=== PATIENT | female | born 1985 | race Caucasian/White ===

== ENCOUNTER 2020-09-13 06:39 | Inpatient (IN) | payer BC, MEDICAID, SELFPAY ==
[2020-09-13] VITALS (19 sets, daily range): BP systolic 76–112; BP diastolic 31–86; PULSE 65–93; RESP 16–27; TEMP 36.2–37.2; O2SAT 92–97; BMI 29.9
[2020-09-13] MEDS: lactated ringers 1,000 ML 125 ML IV ×2 (07:57→11:24)
[2020-09-13] MEDS: oxytocin 30 UNIT/500 ML BAG 600 UNIT IV (07:57)
[2020-09-13] MEDS: fentaNYL 50 mcg/mL INJ 2mL 25 MCG IVP (08:20)
--- NOTE | 2020-09-13 08:30 | PM.OBGYHP ---
Providers/Chief Complaint Primary Care Provider: Sebas Trevizo Chief Complaint: out of hospital delivery HPI GARDEN IMPLEMENT MECHANIC History of Present Illness HISTORY AND PHYSICAL: I had my baby at home Chief Complaint: I had my baby at home History of present illness: Ms. Marks is a 35-year old 7 para 0-5-2-3 at roughly 23 weeks gestation with an estimated due date of 01/26/2021 who presented to labor and delivery with reports of delivering a fetus at home that was without signs of life when EMS arrived. She states that she was doing okay and was seen by her GARDEN IMPLEMENT MECHANIC Dr. Momin in [facility] on 09/12/2020. She was told that her cervix was short and that it was unlikely that she would carry full-term. She was taking progesterone supplements for this. She states that she got up in the morning to empty her bladder and as she was bearing down to empty her bladder she delivered her . She states the baby had no signs of life upon delivery and the placenta followed shortly after. She reports that EMS came about 15 to 20 minutes after delivery and there were no signs of life although they attempted CPR. She was brought to the hospital by 6:30 AM about an hour and a half after delivery. She does report some cramping pain. She is upset at the loss of her . course: Reports an uncomplicated course other than having a shortened cervix for which she was taking progesterone. States that her diabetes was well controlled although she does not know details about this and states that all she needed was the Metformin. LABS: None available right now Obstetric History: SAB x2 5 vaginal deliveries including this 1. The longest that she has carried a to is 32 weeks Gynecological history: Menstrual :-Menarche at age 15 with regular 30-day cycles lasting for 3 days Sexual:-Deferred Pap smear:-Reports history of normal Pap smears. Does not know when her last Pap smear was Sexually transmitted infections:-Denies Contraception:-Is use the pill the patch and the Depo-Provera for contraception in the past. Past medical history: -----Type 2 diabetes diagnosed at the age of 32 and she has been on Metformin 500 mg twice daily since then. This is managed by her primary care provider. She does not remember her last hemoglobin A1c -----Bipolar disorder since her teenage years and is on fluoxetine managed by her primary care provider. She does not have a psychiatrist or therapist. ------ denies history of asthma, seizures, DVT/PE, stroke Past surgical history: ----->Open heart surgery in 2017 at [facility] in [place] for a leaky heart valve and blood clots in her heart along with a hole in her heart ----> Right ear reconstructive surgery in her 20s Allergies: -Aspirin-head rings--she has taken ibuprofen without any problems. -Percocet-leg swelling---has taken [place] without any problems Current Medications: Metformin, melatonin, Prozac, progesterone, Social History: Alcohol use:-1-2 times a year prior to the . None since finding out she was Tobacco use:-Started smoking at the age of 15 and smoked with the most 2 packs of cigarettes a day. Has been cutting down and now currently smokes about half a pack of cigarettes a day during the . Drug use:-Denies current or past drug use Family History: Mother has diabetes Physical exam: General: well developed, well nourished Neuro/Psych: alert, oriented to time, place and person. Heart: S1-S2 heard, regular rate and rhythm. Lungs: Clear to auscultation bilaterally. Abdomen: 4 fingerbreadths above the pubic bone Legs: No pedal edema no calf tenderness. Negative Homans sign Back: No CVA tenderness Skin: Normal over abdomen Lymph nodes: No palpable inguinal lymph nodes Pelvic exam: External genitalia---cervix appears intact and there are no sulcal tears and perineal tears. Cervix appears open admitting 2 fingers and there is still blood clots and tissue on the inside. Unable to take it out completely given patient's discomfort and difficulty getting through the cervix given early gestation and long interval of time from delivery to exam. Assessment and Plan: 35-year-old 7 para 0-5-2-3 status post delivery of a nonviable on 09/13/2020 -Likely retained bits of placenta--patient not tolerating exam and requires D&C for retained bits of placenta. Discussed procedure of D&C with patient including risk of bleeding, infection, anesthesia risk, damage to surrounding organs. Discussed risk of uterine perforation. -All patient's questions about the procedure were answered to her satisfaction and consents were obtained -CBC type and screen stat -Drug screen urine culture now -OR and anesthesia notified--2 OR for D&C Present Details : 7 Para: 5 Review of Systems Const: Denies: fever(s), chills, change in appetite, change in weight, fatigue, malaise or change in sleep pattern Resp: Denies: dyspnea, productive cough, wheezing or chest congestion GI: Denies: abdominal pain, nausea, vomiting, heartburn, diarrhea, constipation, change in bowel habits or hematochezia : Denies: flank pain, dysuria, urinary frequency, urinary urgency, urinary incontinence, genital lesions, vaginal odor, vaginal bleeding, vaginal discharge, change in menstrual flow or dyspareunia Psych: Denies: anxiety, depression, mood swings or change in appetite Vitals/I&O/Wt Last Vital Signs Temp 98.1 F 09/13/20 06:35 Pulse 93 09/13/20 06:35 Resp 19 H 09/13/20 06:35 BP 106/53 09/13/20 06:35 Pulse Ox 97 09/13/20 06:35 Data : 09/13/20 09:05 09/13/20 09:05 Attestations Medical Necessity Statement*: Patient needs to stay to recover from surgery and delivery Coding Level of Care Code Acute Distribution Center Manager for Ryan Cruz
--- NOTE | 2020-09-13 08:45 | PC.NURSE ---
Rounding Patient taken to PACU via labor bed.
[2020-09-13] MEDS: miSOPROStol 200 mcg Tablet 800 MCG PR (09:15)
[2020-09-13 09:16] LABS: Amphetamines Screen Urine Negative (Negative); Barbiturates Screen Urine Negative (Negative); Benzodiazepines Screen Urine Negative (Negative); Bilirubin Urine Neg (Negative); Blood Urine 2+ (Negative); Cocaine Screen Urine Negative (Negative); Glucose Urine UA Norm (Normal); Ketones Urine Negative (Negative); Leukocyte Esterase Urine Negative (Negative); Nitrate Urine Negative (Negative); Opiate Screen Urine Negative (Negative); PCP Screen Urine Negative (Negative); Protein Urine Neg (Negative); Specific Gravity, Urine 1.015 (1.005-1.030); THC Screen Urine Negative (Negative); Urine Appearance Clear (CLEAR); Urine Color Yellow (Yellow); Urobilinogen Urine Norm (Negative); pH Urine 6.5 (5-7)
[2020-09-13] MEDS: silver nitrate applicator 1 EACH TOPICAL (09:16)
[2020-09-13 09:17] LABS: Bacteria Urine TRACE /hpf; Mucus Urine TRACE /hpf; Squamous Epithelial Cell Urine 0-4 /hpf (0-5)
--- NOTE | 2020-09-13 09:19 | PM.OP ---
Operative Report Date of procedure: September 13, 2020 OPERATIVE REPORT Date of surgery: 09/13/2020 Date of dictation: 09/13/2020 Preoperative diagnosis: Retained placenta after previable delivery at 23 weeks Postoperative diagnosis/findings: Same, 14-week size anteverted uterus, open cervix with products noted. Procedure done: Dilation and curettage Specimens removed/disposition of specimens: Placental tissue Surgeon: Dr. Beto Chapin biology research assistant: Lionel Anesthesia: Sedation Estimated blood loss: 150 ml Intravenous fluids: 300 mL of LR Urine output: 50 mL of urine via straight catheter prior to start of procedure Medications: As per anesthesia records, 800 mcg of Cytotec per rectum Complications: None, patient was taken to the recovery room in a stable condition PROCEDURE: After consents were signed , the patient was taken to the operating room where she was placed under sedation anesthesia without any difficulty. She was placed in dorsal lithotomy position and exam under anesthesia showed a She was then prepped and draped in the usual sterile fashion. Weighted speculum and lateral wall retractors were used to visualize the cervix and the anterior lip of cervix was grasped with a tenaculum. The cervix was easily dilated. Once this was done sharp curette was placed into the uterus without difficulty and advanced to the fundus. Care was taken to do gentle curettage towards the cervix to decrease the risk of perforation. This was done gently on all 4 david of the uterus and gritty sensation was noted. Copious amounts of placental tissue membrane and clots were removed and sent to pathology labeled as placental tissue. As there was still active bleeding from the cervix she was given Pitocin IV and 800 mcg of Cytotec per rectum. Bimanual massage was continued and the uterus was noted to be firm and was 12 weeks in size. Bleeding was noted to be minimal. Tenaculum was removed from the cervix and hemostasis was achieved at tenaculum site with silver nitrate. All instruments were removed from the vagina. Anesthesia was reversed without difficulty and taken to the recovery room in a stable condition. This documentation was created by [employer] alteration tailor apprentice software (known for inherent alteration tailor apprentice error). Every effort was made to assure accuracy of alteration tailor apprentice. Any obvious errors or omissions should be clarified with the author of the document. Associated Problem List Diagnoses (1) labor with delivery: (2) Retained placenta after delivery without hemorrhage but with other complication: [facility] GANG PUSHER Medical History (Updated 09/13/20 @ 15:07 by Beto Handy MD) Bipolar disorder Diagnosed as a teenager and has been on different medications in the past. Has been on Prozac most recently prior to the and during the again managed by her primary care provider. She does not have a psychiatrist or therapist. Currently denies suicidal/homicidal ideation Diabetes mellitus Diagnosed in 2018 and reports that he was controlled on Metformin prior to this and the dose has not changed during the . -Reports that is managed by her primary care provider No pertinent past medical history Denies diabetes, asthma, seizures, DVT/PE PMD: Dr. Marsh Surgical History (Updated 09/13/20 @ 15:07 by Beto Handy MD) History of ear surgery 20s--reports having reconstructive surgery on her right ear for an abnormality. Does not know details S/P dilation and curettage 09/13/2020--dilation and curettage performed by Dr. Chaipn at [facility] for retained placenta after previable delivery at 23 weeks. -----Pathology pending Status post cardiac surgery 2018--reports having open heart surgery for a leaky heart valve/blood clot--reports it was triple bypass surgery. Does not really know any details. ------> performed at [facility] in [place]. History History History 7 Term 0 Miscarriages/Ectopic 2 5 Living Children 3 Other History: SAB X 2 X 5----> 2 including this 1 previable baby did not survive, other 3 were the longest going up to 32 weeks. Patient reports uncomplicated vaginal deliveries.
[2020-09-13 09:20] LABS: Add Urine Culture? No
[2020-09-13 09:25] LABS: Glucose Point of Care 133 mg/dL (70-110)
--- NOTE | 2020-09-13 09:32 | SUR.PHASEI ---
0956 patient to pacu at this time. rr even and unlabored. pt denies pain.
[2020-09-13 09:36] LABS: Basophils % 0.4 %; Eosinophils # 0.1 10^3/uL (0.0-0.8); Eosinophils % 0.4 %; Hematocrit 32.2 % (37.0-47.0); Hemoglobin 10.6 g/dL (11.5-15.3); Lymphocytes # 1.4 10^3/uL (0.8-4.8); Lymphocytes % 12.4 %; Mean Corpuscular HGB Conc 32.9 g/dL (30.0-36.0); Mean Corpuscular Volume 94.2 fL (81-99); Mean Platelet Volume 11.1 fL (7.4-10.4); Monocytes # 0.7 10^3/uL (0.2-0.9); Neutrophils # 9.12 10^3/uL (1.8-7.7); Neutrophils % 79.9 %; Nucleated Red Blood Cells % 0 %; Platelet Count 187 10^3/cmm (130-400); Red Blood Count 3.42 10^6/uL (4.1-5.3); Red Cell Distribution Width 14.5 % (12.1-15.1); White Blood Count 11.4 10^3/uL (4.0-10.0)
--- NOTE | 2020-09-13 09:37 | P.ANESASSM_ITS ---
Pre-Anesthetic Assessment Pre-Anesthetic Assessment: Height/Weight: Temp Pulse Resp BP Pulse Ox 97.2 F L 72 27 H 88/43 92 09/13/20 09:25 09/13/20 09:30 09/13/20 09:30 09/13/20 09:30 09/13/20 09:30 Proposed Procedure: Operation Date: 09/13/20 09:40 Proposed Procedures p Dilation And Curettage (D&C)(Not Applicable) - Beto Handy MD Was Beta [place] taken within 24 hours: N/A Was Clonidine taken within 24 hours: N/A Social: Social History: Tobacco Exam: Pre-Anes Outpt Exam: alert, oriented x 3 and regular rate & rhythm Airway: Submandibular: WNL Cervical ROM: WNL MP: 2 Dentition: False CV/HEM: CV/HEM: Anemia Comments: H/o heart surgery, valve repair? Neuropsych: Neuropsych: Anxiety Anesthetic Plan: ASA status: 3E Anesthesia: Choice Other: demise Risk of > 500 ml blood loss (7ml/kg in children): No Meds/Allergies Current Medications: Current Medications Generic Name Dose Route Start Last Admin Trade Name Freq PRN Reason Stop Dose Admin Fentanyl 25 mcg 09/13/20 07:33 09/13/20 08:49 Fentanyl 50 Mcg/ Ml Inj 2ml IVP 25 mcg PRN PRN Administration SEVERE PAIN Lactated Ringer's 1,000 mls @ 125 m ls/hr 09/13/20 07:45 09/13/20 07:57 Lactated Ringers IV 125 mls/hr .Q8H YARON Administration Oxytocin 30 unit in 500 ml s @ 600 mls/hr 09/13/20 07:31 09/13/20 07:57 Pitocin IV 600 mls/hr .Q50M PRN Administration bleeding Protocol PFSH Anesthesia Female Reproductive History: : 7 Data Anesthesia CBC & Chem 7: 09/13/20 09:05 09/13/20 09:05 Other Labs: Laboratory Results - last 48 hr 09/13/20 09/13/20 09/13/20 07:53 08:20 08:20 WBC RBC Hgb Hct MCV MCH MCHC RDW Plt Count MPV Neut % (Auto) Lymph % (Auto) [place] % (Auto) Eos % (Auto) Baso % (Auto) Neut # (Auto) Lymph # (Auto) [place] # (Auto) Eos # (Auto) Baso # (Auto) Nucleated RBC % (auto) Nucleated RBCs # POC Glucose 133 H Urine Color Yellow Urine Appearance Clear Urine pH 6.5 Ur Specific [place] 1.015 Urine Protein Neg Urine Glucose (UA) Norm Urine Ketones Negative Urine Blood 2+ H Urine Nitrate Negative Urine Bilirubin Neg Urine Urobilinogen Norm Ur Leukocyte Esterase Negative Urine RBC 5-10 H Urine WBC None Ur Squamous Epith Cells 0-4 H Amorphous Sediment Not Reportable Urine Bacteria Trace Urine Mucus Trace Urine Opiates Screen Negative Ur Barbiturates Screen Negative Ur Phencyclidine Scrn Negative Ur Amphetamines Screen Negative U Benzodiazepines Scrn Negative Urine Cocaine Screen Negative U Marijuana (THC) Screen Negative 09/13/20 09:05 WBC 11.4 H RBC 3.42 L Hgb 10.6 L Hct 32.2 L MCV 94.2 MCH 31.0 MCHC 32.9 RDW 14.5 Plt Count 187 MPV 11.1 H Neut % (Auto) 79.9 Lymph % (Auto) 12.4 [place] % (Auto) 6.0 Eos % (Auto) 0.4 Baso % (Auto) 0.4 Neut # (Auto) 9.12 H Lymph # (Auto) 1.4 [place] # (Auto) 0.7 Eos # (Auto) 0.1 Baso # (Auto) 0.0 Nucleated RBC % (auto) 0 Nucleated RBCs # 0.0 POC Glucose Urine Color Urine Appearance Urine pH Ur Specific [place] Urine Protein Urine Glucose (UA) Urine Ketones Urine Blood Urine Nitrate Urine Bilirubin Urine Urobilinogen Ur Leukocyte Esterase Urine RBC Urine WBC Ur Squamous Epith Cells Amorphous Sediment Urine Bacteria Urine Mucus Urine Opiates Screen Ur Barbiturates Screen Ur Phencyclidine Scrn Ur Amphetamines Screen U Benzodiazepines Scrn Urine Cocaine Screen U Marijuana (THC) Screen Cardiac Studies: No Data to Display
[2020-09-13 09:51] LABS: Chloride 102 mmol/L (98-107); Potassium 3.7 mmol/L (3.5-5.1)
[2020-09-13] MEDS: lactated ringers 1,000 ML 999 ML IV (09:53)
--- NOTE | 2020-09-13 10:09 | SUR.PHASEI ---
0952 PATIENT TO OB AT THIS TIME. NO DISTRESS. A/OX3. RR EVEN AND UNLABORED.
[2020-09-13 10:11] LABS: Anion Gap 16.6 (5-19); Blood Urea Nitrogen 5 mg/dL (6-20); Calcium 8.1 mg/dL (8.5-10.5); Carbon Dioxide 21 mmol/L (22-29); Glomerular Filtration Rate 183.8 mL/min (90-130); Glucose 118 mg/dL (65-115); Osmolality Calculated 278 mOsm/kg (285-295); Sodium 135 mmol/L (136-145)
[2020-09-13 12:00] LABS: Glucose Point of Care 122 mg/dL (70-110)
[2020-09-13] MEDS: guaiFENesin 100 mg/5 mL UDC 10 mL 200 MG PO ×2 (12:30→20:37)
[2020-09-13] MEDS: nicotine 7 mg Patch 1 PATCH TRANSDERMA (13:13)
--- NOTE | 2020-09-13 14:55 | ANE.PACU2 ---
Inpatient post-anesthesia follow up: Airway intact: Yes Vital signs: Temperature 97.4 F Pulse Rate 67 Respiratory Rate 17 Blood Pressure 94/62 Pulse Oximetry 94 Oxygen Delivery Me thod Room Air Oxygen Flow Rate 6 Fraction of Inspir ed Oxygen Hydration adequate: Yes Nausea and vomiting: No Pain level: 2 Mental status: Baseline
[2020-09-13] MEDS: ibuprofen 800 mg tablet PO ×2 (16:00→21:30)
--- NOTE | 2020-09-13 18:18 | PC.NURSE ---
OB Pad Changes 1015-OB pad and chux pad changed when patient returned from D&C, estimated to be 1 OB pad completely saturated. 1130-OB pad changed, less than 1/2 pad saturated, scant bleeding. 1400-OB pad changed, less than 1/2 pad saturated, scant bleeding. 1610-OB pad changed, less than 1/2 pad saturated, scant bleeding.
[2020-09-13 20:48] LABS: Glucose Point of Care 150 mg/dL (70-110)
[2020-09-13 22:03] LABS: Hematocrit 29.3 % (37.0-47.0); Hemoglobin 9.7 g/dL (11.5-15.3); Mean Corpuscular HGB Conc 33.1 g/dL (30.0-36.0); Mean Corpuscular Hemoglobin 30.8 pg (28.0-34.0); Mean Platelet Volume 10.8 fL (7.4-10.4); Platelet Count 185 10^3/cmm (130-400); Red Blood Count 3.15 10^6/uL (4.1-5.3); Red Cell Distribution Width 14.5 % (12.1-15.1); White Blood Count 11.3 10^3/uL (4.0-10.0)
[2020-09-14] MEDS: zolpidem 5 mg Tablet PO (01:45)
[2020-09-14 05:32] LABS: Glucose Point of Care 131 mg/dL (70-110)
--- NOTE | 2020-09-14 06:24 | P.DS_ITS ---
Discharge Providers GAGE DESIGNER Date of Discharge: 09/23/20 Attending Provider at Discharge: Beto Handy MD Primary Care Provider: Ms. Marks is a 35-year old 7 para 0-5-2-3 at roughly 23 weeks gestation with an estimated due date of 01/26/2021 who presented to labor and delivery on 09/13/2020 with reports of delivering a fetus at home that was without signs of life when EMS arrived. She states that she was doing okay and was seen by her GAGE DESIGNER Dr. Momin in [facility] on 09/12/2020. She was told that her cervix was short and that it was unlikely that she would carry full-term. She was taking progesterone supplements for this. She states that she got up in the morning to empty her bladder and as she was bearing down to empty her bladder she delivered her . She states the baby had no signs of life upon delivery and the placenta followed shortly after. She reports that EMS came about 15 to 20 minutes after delivery and there were no signs of life although they attempted CPR. She was brought to the hospital by 6:30 AM about an hour and a half after delivery. She does report some cramping pain. She is upset at the loss of her . ------> when I evaluated her placenta initially looked intact however cervix was normal closed and bits of placental tissue were extracted from the lower uterine segment. However given the length of time between delivery and my examination I was unable to access the whole uterine cavity and patient was very uncomfortable as a result decision was made to do a D&C to remove the retained parts of the placenta. Patient was consented on 09/13/2020 underwent a dilation and curettage for removal of placental tissue which was uncomplicated. HOSPITAL COURSE: She did well on day 0 and was ambulating well, tolerating regular diet, voiding freely, passing flatus. She was understandably upset but was coping well since this has happened to her before. On postoperative day #1 she continued to do well with stable vital signs and stable hemoglobin of 9.7 from an admission value of 10.6. Vital signs were stable. She was discharged home in a stable condition with recommendation to maintain pelvic rest. She is interested in sterilization and she plans to talk to her primary OB about this. She will follow-up with me in 2 weeks for a postoperative visit and then follow- up with her primary OB for 6-week visit EXAM AT DISCHARGE: Gen.: No acute distress Heart: S1-S2 heard, regular rate and rhythm Lungs: Clear to auscultation bilaterally Abdomen: Soft, fundus firm below umbilicus, Legs: No calf tenderness, trace bilateral pitting pedal edema. CONDITION AT DISCHARGE: Stable This documentation was created by [employer] jack spinner software (known for inherent jack spinner error). Every effort was made to assure accuracy of jack spinner. Any obvious errors or omissions should be clarified with the author of the document. Diagnoses at Discharge Discharge Diagnosis (1) labor with delivery: Status: Resolved (2) Retained placenta after delivery without hemorrhage but with other complication: Status: Resolved Reason for Visit Reason for Visit: out of hospital delivery Physical Exam Urinary Catheter Management^: Straight: Cath Placed During This Visit: no Discharge Data Data Completed and Pending: Pending at discharge Category Date Time Status COVID [Coronaviru s Test Green Count y] Routine Lab 09/13/20 18:50 Received Chlamydia Trachom atis SHAHNAZ Routine Lab 09/13/20 08:20 Received Complete Crossmat ch Routine Lab 09/13/20 10:49 Results Neisseria Gonorrh oeae SHAHNAZ Routine Lab 09/13/20 08:20 Received Retype for Patiet s ABO/Rh Routine Lab 09/13/20 09:59 Ordered Rho D Immune Glob ulin Routine Lab 09/13/20 10:49 Results Pathology: Surgic al [PTH] Routine Pth 09/13/20 09:28 Received Labs from last 24 hours 09/14/20 09/13/20 09/13/20 05:27 21:34 20:39 WBC 11.3 H RBC 3.15 L Hgb 9.7 L Hct 29.3 L MCV 93.0 MCH 30.8 MCHC 33.1 RDW 14.5 Plt Count 185 MPV 10.8 H Neut % (Auto) Lymph % (Auto) [place] % (Auto) Eos % (Auto) Baso % (Auto) Neut # (Auto) Lymph # (Auto) [place] # (Auto) Eos # (Auto) Baso # (Auto) Nucleated RBC % (a uto) Nucleated RBCs # Sodium Potassium Chloride Carbon Dioxide Anion Gap BUN Creatinine GFR Calculation Glucose POC Glucose 131 H 150 H Calculated Osmolal ity Calcium Urine Color Urine Appearance Urine pH Ur Specific Gravit y Urine Protein Urine Glucose (UA) Urine Ketones Urine Blood Urine Nitrate Urine Bilirubin Urine Urobilinogen Ur Leukocyte Brea ase Urine RBC Urine WBC Ur Squamous Epith Cells Amorphous Sediment Urine Bacteria Urine Mucus Urine Opiates Scre en Ur Barbiturates Sc reen Ur Phencyclidine S crn Ur Amphetamines Sc reen U Benzodiazepines Scrn Urine Cocaine Scre en U Marijuana (THC) Screen Nasal/Oral COVID-1 9 PCR Blood Type Rho(D) Type Antibody Screen 09/13/20 09/13/20 09/13/20 18:50 11:27 09:05 WBC RBC Hgb Hct MCV MCH MCHC RDW Plt Count MPV Neut % (Auto) Lymph % (Auto) [place] % (Auto) Eos % (Auto) Baso % (Auto) Neut # (Auto) Lymph # (Auto) [place] # (Auto) Eos # (Auto) Baso # (Auto) Nucleated RBC % (a uto) Nucleated RBCs # Sodium 135 L Potassium 3.7 Chloride 102 Carbon Dioxide 21 L Anion Gap 16.6 BUN 5 L Creatinine 0.4 L GFR Calculation 183.8 H Glucose 118 H POC Glucose 122 H Calculated Osmolal ity 278 L Calcium 8.1 L Urine Color Urine Appearance Urine pH Ur Specific Grav[place] y Urine Protein Urine Glucose (UA) Urine Ketones Urine Blood Urine Nitrate Urine Bilirubin Urine Urobilinogen Ur Leukocyte Brea ase Urine RBC Urine WBC Ur Squamous Epith Cells Amorphous Sediment Urine Bacteria Urine Mucus Urine Opiates Scre en Ur Barbiturates Sc reen Ur Phencyclidine S crn Ur Amphetamines Sc reen U Benzodiazepines Scrn Urine Cocaine Scre en U Marijuana (THC) Screen Nasal/Oral COVID-1 9 PCR Pending Blood Type Rho(D) Type Antibody Screen 09/13/20 09/13/20 09/13/20 09:05 09:05 08:20 WBC 11.4 H RBC 3.42 L Hgb 10.6 L Hct 32.2 L MCV 94.2 MCH 31.0 MCHC 32.9 RDW 14.5 Plt Count 187 MPV 11.1 H Neut % (Auto) 79.9 Lymph % (Auto) 12.4 [place] % (Auto) 6.0 Eos % (Auto) 0.4 Baso % (Auto) 0.4 Neut # (Auto) 9.12 H Lymph # (Auto) 1.4 [place] # (Auto) 0.7 Eos # (Auto) 0.1 Baso # (Auto) 0.0 Nucleated RBC % (a uto) 0 Nucleated RBCs # 0.0 Sodium Potassium Chloride Carbon Dioxide Anion Gap BUN Creatinine GFR Calculation Glucose POC Glucose Calculated Osmolal ity Calcium Urine Color Urine Appearance Urine pH Ur Specific Gravit y Urine Protein Urine Glucose (UA) Urine Ketones Urine Blood Urine Nitrate Urine Bilirubin Urine Urobilinogen Ur Leukocyte Brea ase Urine RBC Urine WBC Ur Squamous Epith Cells Amorphous Sediment Urine Bacteria Urine Mucus Urine Opiates Scre en Negative Ur Barbiturates Sc reen Negative Ur Phencyclidine S crn Negative Ur Amphetamines Sc reen Negative U Benzodiazepines Scrn Negative Urine Cocaine Scre en Negative U Marijuana (THC) Screen Negative Nasal/Oral COVID-1 9 PCR Blood Type A Negative Rho(D) Type Negative / 0 Antibody Screen Negative 09/13/20 09/13/20 08:20 07:53 WBC RBC Hgb Hct MCV MCH MCHC RDW Plt Count MPV Neut % (Auto) Lymph % (Auto) [place] % (Auto) Eos % (Auto) Baso % (Auto) Neut # (Auto) Lymph # (Auto) [place] # (Auto) Eos # (Auto) Baso # (Auto) Nucleated RBC % (a uto) Nucleated RBCs # Sodium Potassium Chloride Carbon Dioxide Anion Gap BUN Creatinine GFR Calculation Glucose POC Glucose 133 H Calculated Osmolal ity Calcium Urine Color Yellow Urine Appearance Clear Urine pH 6.5 Ur Specific [place] 1.015 Urine Protein Neg Urine Glucose (UA) Norm Urine Ketones Negative Urine Blood 2+ H Urine Nitrate Negative Urine Bilirubin Neg Urine Urobilinogen Norm Ur Leukocyte Brea ase Negative Urine RBC 5-10 H Urine WBC None Ur Squamous Epith Cells 0-4 H Amorphous Sediment Not Reportable Urine Bacteria Trace Urine Mucus Trace Urine Opiates Scre en Ur Barbiturates Sc reen Ur Phencyclidine S crn Ur Amphetamines Sc reen U Benzodiazepines Scrn Urine Cocaine Scre en U Marijuana (THC) Screen Nasal/Oral COVID-1 9 PCR Blood Type Rho(D) Type Antibody Screen Vitals: Last Vital Signs Temp 98.1 F 09/13/20 17:45 Pulse 71 09/13/20 21:36 Resp 17 09/13/20 21:36 BP 98/86 09/13/20 21:36 Pulse Ox 94 09/13/20 21:36 Discharge Plan Discharge Patient Disposition: Home Prescriptions: New ibuprofen 800 mg tablet 800 mg PO Q8H Qty: 30 RF: 0 Continued fluoxetine 40 mg PO DAILY RF: 0 melatonin 10 mg PO BEDTIME RF: 0 metformin 500 mg PO BID RF: 0 Discontinued progesterone 200 mg PO DAILY RF: 0 Discharge Orders: Discharge Order (Routine); Ordered 09/14/20 Ordered By: Beto Handy Referrals: Sebas Trevizo [Primary Care Provider] - (f/u in 8 weeks) Beto Handy MD [Physician] - 09/28/20 10:15 am (2-week postoperative visit) Discharge Diet: Usual diet Discharge Activity: Limit activity as instructed Patient Instructions: Pre-eclampsia and Eclampsia (GEN), Loss of a child (GEN), OB Discharge Report, OB Food/Drug Interaction Guide, OB Vaginal Deliveries - [facility], Abnormal Bleeding, Depression Activity Restrictions/Additional Instructions: Pelvic rest for 6 weeks, no heavy lifting for 6 weeks Follow-up with primary report specialist---Dr. Momin for 4-6-week visit follow-up with Dr. Chapin in 2 weeks for postoperative visit Discharge Attestations GAGE DESIGNER Time Spent in Discharge Care*: greater than 30 min Coding Level of Care Code Acute Yard Brakeman for Chg Fwd Diagnoses labor with delivery O60.10X0 Retained placenta after delivery without hemorrhage but with other complication O73.0
[2020-09-14 08:00] VITALS: BP 114/59; RESP 17
--- NOTE | 2020-09-14 08:00 | PC.NURSE ---
pad changed, no blood noted on pad.
[2020-09-14] MEDS: prenatal vitamin Capsule 1 CAP PO (08:34)
[2020-09-14] MEDS: ibuprofen 800 mg tablet PO (08:34)
[2020-09-14 08:39] VITALS: BP 114/59; RESP 17
[2020-09-14 13:17] LABS: Coronavirus Test Green County Not Detected
[2020-09-14 14:14] LABS: Glucose Point of Care 150 mg/dL (70-110)
== END 2020-09-14 08:40 | disposition home or self-care (01) | DRG 769 ==
LOC: OPOB 09-14 08:58 → OBGYN 09-14 08:58
PROVIDERS: Admitting Provider Obstetrics & Gynecology; PCP Family Medicine; Visit Provider Obstetrics & Gynecology
PROC: 10D17Z9 Manual Extraction of Products of Conception, Retained, Via Natural or Artificial Opening (ICD-10-PCS; CPT 58120; principal; 2020-09-13 09:40)
DX: O73.0 Retained placenta without hemorrhage (principal); O24.33 Unspecified pre-existing diabetes mellitus in the puerperium; E11.9 Type 2 diabetes mellitus without complications; N96 Recurrent pregnancy loss; O99.345 Other mental disorders complicating the puerperium; F31.9 Bipolar disorder, unspecified; O99.335 Smoking (tobacco) complicating the puerperium; F17.210 Nicotine dependence, cigarettes, uncomplicated; Z87.51 Personal history of pre-term labor; Z79.84 Long term (current) use of oral hypoglycemic drugs; Z3A.23 23 weeks gestation of pregnancy
CPT/HCPCS: 36415; 36416; 51702; 80048; 80306; 81001; 82962; 85025; 85027; 86850; 86900; 87491; 87591; 87635; 88307; 90384; 96374; 96375; J0330; J0690; J2250; J2405; J2704; J3010

== ENCOUNTER → 2020-09-28 12:39 | Outpatient (BNVA) | payer BC, MEDICAID, SELFPAY | PROVIDERS: PCP Family Medicine; Visit Provider Obstetrics & Gynecology | DX: Z30.9 Encounter for contraceptive management, unspecified (principal) | CPT/HCPCS: 81025 ==

== ENCOUNTER → 2021-05-09 14:23 | Outpatient (BNVA) | payer BC, MEDICAID, SELFPAY | PROVIDERS: PCP Family Medicine; Visit Provider Internal Medicine | DX: I25.10 Atherosclerotic heart disease of native coronary artery without angina pectoris (principal); E11.9 Type 2 diabetes mellitus without complications; R06.02 Shortness of breath | CPT/HCPCS: 99204 ==

== ENCOUNTER 2021-05-18 16:23 | Outpatient (CLI) | payer BC, MEDICAID, SELFPAY ==
--- NOTE | 2021-05-18 16:41 | XR_ITS ---
WS: [id number] XR chest 2V* [id number] REASON FOR EXAM: sternal pain FINDINGS: Sternal sutures. Superiormost wire sternal suture is fractured, nondisplaced. Previous coronary arter y bypass surgery. Normal thoracic aorta and heart. Minimal calcified granulomatous disease bilaterally. No lung mass or lung nodule. No acute pulmonary parenchymal or pleural abnormality. Old pleural pericardial reaction on the left. XR/XR chest 2V* [id number] IMPRESSION: No acute chest abnormality.
--- NOTE | 2021-05-18 16:41 | XR_ITS ---
WS: [id number] XR thoracic spine 3V* [id number] REASON FOR EXAM: chronic back pain FINDINGS: Normal thoracic spine alignment. No compression deformity or other focal vertebral body abnormality. Minimal disc space narrowing with small anterior osteophytes in the mid and lower thoracic spine. XR/XR thoracic spine 3V* [id number] IMPRESSION: Minimal degenerative change.
== END 2021-05-18 16:24 | disposition home or self-care (01) ==
LOC: RAD 16:27
PROVIDERS: PCP Family Medicine; Visit Provider Family Medicine
DX: R07.89 Other chest pain (principal); M54.6 Pain in thoracic spine; G89.29 Other chronic pain
CPT/HCPCS: 71046; 72072; 81025

== ENCOUNTER → 2021-06-29 09:23 | Outpatient (BNVA) | payer BC, MEDICAID, SELFPAY | PROVIDERS: PCP Family Medicine; Visit Provider Thoracic Surgery (Cardiothoracic Vascular Surgery) | DX: R07.89 Other chest pain (principal); Z95.1 Presence of aortocoronary bypass graft; F17.210 Nicotine dependence, cigarettes, uncomplicated | CPT/HCPCS: 99203 ==

== ENCOUNTER 2021-07-10 06:41 | Outpatient (CLI) | payer BC, MEDICAID, SELFPAY ==
--- NOTE | 2021-07-10 07:00 | USCV_ITS ---
Karrie Marks Age: 36 Gender: F : 1985 Exam Date: 07/10/2021 06:55 Ordering Phys: Rory Graves M.D ([email or web address]) Technologist: Barbara De Luna Exam Location: [facility] – [place] Indication: Shortness of breath, Chest pain BP: 103 / 66 HR: 78 Rhythm: Sinus Technical Quality: Suboptimal MEASUREMENTS (Male / Female) Normal Values 2D ECHO LV Diastolic Diameter PLAX 4.3 cm 4.2 - 5.9 / 3.9 - 5.3 cm LV Systolic Diameter PLAX 3.2 cm IVS Diastolic Thickness 0.7 cm 0.6 - 1.0 / 0.6 - 0.9 cm IVS Systolic Thickness 0.9 cm LVPW Diastolic Thickness 0.7 cm 0.6 - 1.0 / 0.6 - 0.9 cm LVPW Systolic Thickness 1.0 cm LVOT Diameter 1.9 cm LV Ejection Fraction 2D Teich 51.1 % LV Ejection Fraction MOD 2C 53.3 % LV Ejection Fraction 2C AL 52.2 % LA Diameter 2.1 cm LA Width 2.3 cm LA Height 3.0 cm Aorta at Sinotubular Diameter 1.8 cm IVC Diameter 1.3 cm M-MODE Aortic Annulus Diameter 2.5 cm LA Ao Ratio MM 0.8 MV E Point Septal Separation 0.4 cm DOPPLER AV Peak Velocity 142.0 cm/s LVOT Peak Velocity 105.0 cm/s AV Area Cont Eq vti 2.2 cm squared AV Area Cont Eq pk 2.0 cm squared MV Area PHT 5.0 cm squared Mitral E to A Ratio 1.2 MV E' Velocity 47.5 cm/s Mitral E to MV E' Ratio 7.6 Mitral E to LV E' Lateral Ratio 6.5 Mitral E to LV E' Septal Ratio 9.2 Right Atrial Pressure 3.0 mmHg PV Peak Velocity 175.7 cm/s RV Acceleration Time 0.1 s RV Ejection Time 0.3 s RV AcT/ET 0.3 FINDINGS Left Ventricle Technically limited quality echocardiogram because of poor ultrasonic windows. LV systolic function is normal with EF of 50-55%. No regional wall motion abnormalities are seen. Diastolic function is normal. Right Ventricle Grossly normal Right Atrium Grossly normal Left Atrium Grossly normal Mitral Valve Grossly normal. Mild mitral regurgitation Aortic Valve Grossly normal. Tricuspid Valve Trace tricuspid regurgitation. Insufficient TR jet to calculate RVSP. Pulmonic Valve Moderate pulmonic regurgitation. Pericardium Grossly normal Aorta Grossly normal CONCLUSIONS Technically limited quality echocardiogram because of poor ultrasonic windows. LV systolic function is normal with EF of 50-55%. No regional wall motion normalities are seen. Diastolic function is normal. Mild mitral regurgitation. Trace tricuspid regurgitation. No comparison studies are available. Rory Graves MD (Electronically Signed) Final Date: 15 Jul 2021 20:55 S
== END 2021-07-10 06:42 | disposition home or self-care (01) ==
LOC: RAD 06:42
PROVIDERS: PCP Family Medicine; Visit Provider Internal Medicine
DX: R07.9 Chest pain, unspecified (principal); R06.02 Shortness of breath; I34.0 Nonrheumatic mitral (valve) insufficiency; I07.1 Rheumatic tricuspid insufficiency
CPT/HCPCS: 93306

== ENCOUNTER → 2021-07-25 15:00 | Outpatient (BNVA) | payer BC, MEDICAID, SELFPAY | PROVIDERS: PCP Family Medicine; Visit Provider Family Medicine | DX: E11.9 Type 2 diabetes mellitus without complications (principal); M54.6 Pain in thoracic spine; G89.29 Other chronic pain | CPT/HCPCS: 80053; 80061; 83036; 85025 ==

== ENCOUNTER → 2021-10-02 14:27 | Outpatient (BNVA) | payer BC, MEDICAID, SELFPAY | PROVIDERS: PCP Family Medicine; Visit Provider Internal Medicine | DX: I25.10 Atherosclerotic heart disease of native coronary artery without angina pectoris (principal); Z95.1 Presence of aortocoronary bypass graft | CPT/HCPCS: 99213; 99214 ==

== ENCOUNTER → 2021-10-26 14:24 | Outpatient (BNVA) | payer BC, MEDICAID, SELFPAY | PROVIDERS: PCP Family Medicine; Visit Provider Family Medicine | DX: E11.9 Type 2 diabetes mellitus without complications (principal); M54.6 Pain in thoracic spine; G89.29 Other chronic pain; F17.219 Nicotine dependence, cigarettes, with unspecified nicotine-induced disorders; K52.9 Noninfective gastroenteritis and colitis, unspecified | CPT/HCPCS: 80053; 83036 ==

== ENCOUNTER 2021-11-21 21:20 | Emergency (ER) | payer BC, MEDICAID, SELFPAY ==
[2021-11-21 21:22] VITALS: BP 129/85; PULSE 74; RESP 16; TEMP 36.2; O2SAT 96
--- NOTE | 2021-11-21 21:33 | ED_ITS ---
HPI - Ear Problem General: Chief complaint: Ear Stated complaint: Rt Ear Pain Time Seen by Provider: 11/21/21 21:30 History of Present Illness: Patient is a 36-year-old female comes to the ED with right ear pain. Symptoms started yesterday. Denies any drainage out of ear. She rates the pain currently a 5 out of 10. Denies any fever, chills, nausea/vomiting or any other symptoms. Associated symptoms: Reports ear or mastoid pain (Right ear); Denies fever(s), headache(s) or neck pain Review of Systems Const: Denies: fever(s), chills or fatigue Eyes: Denies: change in vision or eye discomfort ENMT: Reports: ear or mastoid pain (Right ear); Denies: throat pain, odynophagia, nasal discharge or nasal congestion Card: Denies: chest pain, palpitations, edema, swelling of feet/ankles, dyspnea on exertion or orthopnea Resp: Denies: dyspnea, productive cough or non-productive cough GI: Denies: abdominal pain, nausea, vomiting, diarrhea, constipation or hematochezia : Denies: flank pain, dysuria or hematuria Musc: Denies: neck pain, back pain or extremity swelling Skin/Breast: Denies: rash or new lesions Neuro: Denies: headache(s), numbness in extremities or weakness in extremities PFSH ED PFSH: Medical History Bipolar disorder Diagnosed as a teenager and has been on different medications in the past. Has been on Prozac most recently prior to the and during the again managed by her primary care provider. She does not have a psychiatrist or therapist. 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 Patient does not know any details and no cardiology information is available Diabetes mellitus Diagnosed about 3 years ago. Surgical History History of ear surgery 20s--reports having reconstructive surgery on her right ear for an abnormality. Does not know details S/P dilation and curettage X 2 2007--D&C done for miscarriage 09/13/2020--dilation and curettage performed by Dr. Chapin at [facility] for retained placenta after previable delivery at 23 weeks. -----Pathology showed decidualized endometrium with chronic inflammation, no malignancy Status post cardiac surgery 2018--reports having open heart surgery for a leaky heart valve/blood clot--reports it was triple bypass surgery. Does not really know any details. ------> performed at [facility] in [place]. Family History Mother Diabetes Hypertension Grandfather Diabetes maternal Heart disease materal Family/Other Heart disease maternal uncle Diabetes maternal uncle Denies family history of Colon cancer Ovarian cancer Hyperlipidemia Breast cancer Uterine cancer Thyroid condition Stroke Social History Smoking and tobacco status: current every day smoker cigarettes Packs smoked per day: 1 Years cigarettes smoked: 20 Alcohol intake: current Alcohol intake frequency: holidays/special occasions only Marital status: Unknown Number of children: 5 Pets and animals: Yes Pets & animals: cat(s) and dog(s) Physical Exam Const: COMMON NORMALS: no acute distress, patient oriented x3, healthy appearing and alert GENERAL APPEARANCE: cooperative and comfortable HENMT: COMMON NORMALS: normocephalic, external ears normal and EAC's normal HEAD & SCALP: normocephalic EXTERNAL EAR: Yes external ears normal EXTERNAL AUDITORY CANAL: EAC's normal TYMPANIC MEMBRANE: TM normal on the left and TM abnormal TM laterality: right Details: erythematous and fluid behind TM MOUTH: Normal oral and palatal mucosa present THROAT: posterior oropharynx normal and uvula midline Neck/C-Spine: COMMON NORMALS: supple GENERAL: Yes normal visual inspection Resp: COMMON NORMALS: normal respiratory effort, No retractions, No use of accessory muscles and clear to auscultation bilaterally AUSCULTATION: clear to auscultation bilaterally Cardio: COMMON NORMALS: regular rate, regular rhythm, S1 normal heart sound present, S2 normal heart sound present, No gallops present (Cardio), No clicks present (Cardio), No murmurs present (Cardio) and Peripheral pulses 2+ throughout RATE: regular rate RHYTHM: regular rhythm HEART SOUNDS: S1 normal heart sound present and S2 normal heart sound present PERIPHERAL PULSES: Peripheral pulses 2+ throughout GI: COMMON NORMALS: Normal to inspection, nondistended, normoactive bowel sounds present, Soft to palpation, non-tender and no masses PALPATION: Yes Soft to palpation : COMMON NORMALS: Yes no CVA tenderness BLADDER/KIDNEY EXAM: Yes no CVA tenderness Back/Pelvis: COMMON NORMALS: no CVA tenderness Extremity: COMMON NORMALS: normal to inspection Neuro: COMMON NORMALS: patient oriented x3 SENSORIUM/ORIENTATION: Yes alert GAIT: Yes Normal gait present Skin: GENERAL SKIN EXAM: dry skin Course Vital Signs: Vital signs: Vital Signs Temperature 97.2 F L 11/21/21 21:22 Pulse Rate 74 11/21/21 21:22 Respiratory Rate 16 11/21/21 21:22 Blood Pressure 129/85 11/21/21 21:22 Pulse Oximetry 96 11/21/21 21:22 Oxygen Delivery Me thod 11/21/21 21:22 MDM - Ear Medical Decision Making Patient is a 36-year-old female comes in the ED with right ear pain. Exam of right ear shows otitis media. Patient was given a dose of amoxicillin and Tylenol here in the ED. She was discharged home with a prescription for amoxicillin. Told to follow-up with PCP in the next week for reevaluation. Patient understood and agreed with plan. Discharge Plan Discharge Patient Disposition: Home Clinical Impression: Otitis media Qualifiers: Otitis media type: serous Chronicity: acute Laterality: right Recurrence: non- recurrent Qualified Code(s): H65.01 - Acute serous otitis media, right ear Condition: Stable Prescriptions: New amoxicillin 500 mg capsule 500 mg PO BID 10 Days Qty: 20 0RF No Action ibuprofen 800 mg tablet 800 mg PO Q8H PRN (Reason: pain) tizanidine 2 mg capsule 2 mg PO BID PRN (Reason: muscle spasticity) 90 Days Qty: 180 1RF lactase 9,000 unit tablet 9,000 unit PO QID PRN Rx Instructions: administer with meals and/or snacks citalopram [Celexa] 40 mg tablet 40 mg PO DAILY Qty: 90 0RF diclofenac sodium 1 % gel 2 g topical QID 90 Days Qty: 300 0RF Rx Instructions: apply to single elbow, wrist or hand; for hand includes palm/fingers/back of hand medroxyprogesterone [Depo-Provera] 150 mg/mL suspension 150 mg IM .EVERY 90 DAYS Qty: 1 0RF rosuvastatin 20 mg tablet 20 mg PO DAILY 90 Days Qty: 90 3RF trazodone 50 mg tablet 50 mg PO DAILY 90 Days Qty: 90 1RF metformin 500 mg tablet See Rx Instructions .ROUTE .COMPLEX Qty: 60 0RF Dose Instruction: TAKE 1 TABLET (500 MG) BY MOUTH 2 TIMES DAILY WITH MEALS. *NEEDS APPOINTMENT BEFORE NEXT REFILL* Rx Instructions: TAKE 1 TABLET (500 MG) BY MOUTH 2 TIMES DAILY WITH MEALS. *NEEDS APPOINTMENT BEFORE NEXT REFILL* Jardiance 10 mg tablet 25 mg PO QAM Qty: 30 1RF melatonin 10 mg PO BEDTIME Discharge Orders: Discharge ED (Routine); Ordered 11/21/21 Ordered By: Himanshu Robison Referrals: Jeanette Choudhary DO [Primary Care Provider] - Discharge Diet: Regular Discharge Activity: Increase activity as tolerated Patient Instructions: Otitis Media - Adult Activity Restrictions/Additional Instructions: Follow-up with medical provider as directed in the next 7-10 days for reevaluation. Take medications as prescribed. Return to the ER or your medical provider if condition worsens. Please read and understand discharge instructions. Thank you for choosing [facility] for your healthcare needs today. Please realize this is an emergency room and that we are providing you with a medical screening exam and this may not be complete and all inclusive of all the testing and or work up that you may need to determine your ailment or severity of your illness. It is very important that you follow up as instructed or that you return to the Emergency Department should you have concerns or if your condition changes or worsens in any way. Coding Level of Care Code ED Planograph Operator for Ryan Cruz Exam Comprehensive
[2021-11-21] MEDS: acetaminophen 500 mg Tablet 1000 MG PO (21:46)
[2021-11-21] MEDS: amoxicillin 500 mg Capsule PO (21:46)
== END 2021-11-21 21:52 | disposition home or self-care (01) ==
PROVIDERS: Emergency Provider Physician Assistant; PCP Family Medicine
DX: H65.01 Acute serous otitis media, right ear (principal); Z79.84 Long term (current) use of oral hypoglycemic drugs; F17.210 Nicotine dependence, cigarettes, uncomplicated; E11.9 Type 2 diabetes mellitus without complications
CPT/HCPCS: 99283

== ENCOUNTER → 2021-11-30 09:43 | Outpatient (BNVA) | payer BC, MEDICAID, SELFPAY | PROVIDERS: PCP Family Medicine; Visit Provider Thoracic Surgery (Cardiothoracic Vascular Surgery) | DX: R07.89 Other chest pain (principal) | CPT/HCPCS: 71046 ==

== ENCOUNTER 2021-11-30 21:18 | Emergency (ER) | payer BC, MEDICAID, SELFPAY ==
[2021-11-30 21:22] VITALS: BP 127/79; PULSE 83; RESP 16; TEMP 36.2; O2SAT 95
[2021-11-30] MEDS: HYDROcodone-acetaminophen 5-325 mg Tablet 1 TAB PO (21:49)
[2021-11-30 21:55] VITALS: RESP 16
== END 2021-11-30 21:55 | disposition home or self-care (01) ==
PROVIDERS: Emergency Provider Nurse Practitioner Family; PCP Family Medicine
DX: Z53.21 Procedure and treatment not carried out due to patient leaving prior to being seen by health care provider (principal)
CPT/HCPCS: 99283

== ENCOUNTER → 2022-01-18 14:55 | Outpatient (BNVA) | payer BC, MEDICAID, SELFPAY | PROVIDERS: PCP Family Medicine; Visit Provider Family Medicine | DX: E11.9 Type 2 diabetes mellitus without complications (principal); F31.9 Bipolar disorder, unspecified | CPT/HCPCS: 80053; 83036 ==

== ENCOUNTER 2022-02-06 10:46 | Day surgery (SDC) | payer BC, MEDICAID, SELFPAY ==
[2022-02-01 10:49] VITALS: BMI 28.5
--- NOTE | 2022-02-01 11:12 | ECG_ITS ---
[facility] Test Date: 2022-02-01 Pat Name: Karrie Marks Department: Room: Gender: Female [employer]: : 1985 Requested By: Keena Acharya Order Number: [id number] Rani MD: Sherrell Haro M.D. Measurements Intervals [place] Rate: 69 P: -32 MN: 169 QRS: 73 QRSD: 86 T: -6 QT: 385 QTc: 413 Interpretive Statements SINUS RHYTHM NONSPECIFIC T-WAVE ABNORMALITY No previous ECG available for comparison Electronically Signed On 02-01-2022 19:09:50 [employer] by Sherrell Haro M.D. [id number]
[2022-02-01 11:16] LABS: Add Urine Microscopic? NO; Charge for UA Resulting for Rev
[2022-02-01 11:20] LABS: Basophils # 0.1 10^3/uL (0.0-0.1); Basophils % 0.5 %; Eosinophils # 0.5 10^3/uL (0.0-0.8); Eosinophils % 4.5 %; Hematocrit 42.8 % (37.0-47.0); Hemoglobin 13.8 g/dL (11.5-15.3); Lymphocytes # 2.7 10^3/uL (0.8-4.8); Lymphocytes % 26.1 %; Mean Corpuscular HGB Conc 32.2 g/dL (30.0-36.0); Mean Corpuscular Hemoglobin 30.3 pg (28.0-34.0); Mean Corpuscular Volume 94.1 fl (81-99); Mean Platelet Volume 11.1 fL (7.4-10.4); Monocytes # 0.7 10^3/uL (0.2-0.9); Monocytes % 6.6 %; Neutrophils # 6.35 10^3/uL (1.8-7.7); Neutrophils % 61.8 %; Nucleated Red Blood Cells % 0 %; Platelet Count 217 10^3/cmm (130-400); Red Blood Count 4.55 10^6/uL (4.1-5.3); Red Cell Distribution Width 14.2 % (12.1-15.1); White Blood Count 10.3 10^3/uL (4.0-10.0)
--- NOTE | 2022-02-01 11:21 | P.ANESASSM_ITS ---
Pre-Anesthetic Assessment Height/Weight: Height 1.52 m Weight 66.224 kg Preop Diagnosis: Sternal incision pain Operation Date: 02/06/22 13:25 Proposed Procedures p Sternal Wire Removal 10128,R07.89(Not Applicable) - Deondre Cantor MD Familial anesthetic complications: None Social Tobacco and No alcohol Exam alert, oriented x 3, clear to auscultation bilaterally and regular rate & rhythm Airway Mallampati: Class I Dentition: other (no teeth) Pulmonary None reported CV/HEM Coronary Artery Disease PUlmonary stenosis (congenital) s/p CABG and valve repair and hole in heart Patient states she can achieve 4 METS without symptoms Metabolic Diabetes Mellitus and Hyperlipidemia Anesthetic Plan ASA status: 3 Anesthesia: General Risk of > 500 ml blood loss (7ml/kg in children): No Medications/Allergies Home Medications Medication Instructions Recorded Confirmed Last Taken Type melatonin 10 mg PO BEDTIME 09/14/20 02/01/22 01/31/22 History ibuprofen 800 mg tablet 800 mg PO Q8H PRN pain 09/28/20 02/01/22 01/31/22 History lactase 9,000 unit tablet 9,000 unit PO QID PRN Lactose 10/02/21 02/01/22 Unknown History Intolerance rosuvastatin 20 mg tablet 20 mg PO DAILY 90 days #90 tabs 10/26/21 02/01/22 Rx blood sugar diagnostic (Blood #50 ea 01/18/22 01/18/22 Unknown Rx Glucose Test strips) blood-glucose meter #1 ea 01/18/22 01/18/22 Unknown Rx cetirizine 10 mg capsule (All Day 10 mg PO DAILY PRN allergy 01/18/22 02/01/22 01/31/22 Rx Allergy (cetirizine)) symptoms #90 caps citalopram 40 mg tablet (Celexa) 40 mg PO DAILY #90 tabs 01/18/22 02/01/22 01/31/22 Rx divalproex 250 mg tablet,extended 250 mg PO DAILY #30 tabs 01/18/22 01/18/22 01/31/22 Rx release 24 hr (Depakote ER) empagliflozin 25 mg tablet 25 mg PO QAM #90 tabs 01/18/22 02/01/22 01/31/22 Rx lancets 25 gauge #100 ea 01/18/22 01/18/22 Unknown Rx metformin 500 mg tablet See Rx Instructions .Route 01/18/22 02/01/22 01/31/22 Rx .COMPLEX #90 tabs tizanidine 2 mg capsule 2 mg PO BID PRN muscle spasticity 01/18/22 02/01/22 01/31/22 Rx 90 days #180 caps trazodone 50 mg tablet 50 mg PO DAILY 90 days #90 tabs 01/18/22 02/01/22 01/31/22 Rx medroxyprogesterone 150 mg/mL 150 mg IM .EVERY 90 DAYS #1 mL 01/23/22 02/01/22 11/28/21 Rx intramuscular suspension (Depo-Provera) Allergies Allergy/AdvReac Type Severity Reaction Status Date / Time adhesive tape Allergy Unknown Verified 02/01/22 10:38 oxycodone [From Percocet] AdvReac Mild leg Verified 02/01/22 10:38 cramps-can take hydrocodone aspirin AdvReac tinitus-can Verified 02/01/22 10:38 take ibuprofen [facility] Anesthesia Medical History Bipolar disorder Diagnosed as a teenager and has been on different medications in the past. Has been on Prozac most recently prior to the and during the again managed by her primary care provider. She does not have a psychiatrist or therapist. 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 Patient does not know any details and no cardiology information is available Diabetes mellitus Diagnosed about 3 years ago. Otitis media, serous, TM rupture Surgical History History of ear surgery 20s--reports having reconstructive surgery on her right ear for an abnormality. Does not know details S/P dilation and curettage X 2 2007--D&C done for miscarriage 09/13/2020--dilation and curettage performed by Dr. Chapin at [facility] [place] for retained placenta after previable delivery at 23 weeks. -----Pathology showed decidualized endometrium with chronic inflammation, no malignancy Status post cardiac surgery 2017--reports having open heart surgery for a leaky heart valve/blood clot--reports it was triple bypass surgery. Does not really know any details. ------> performed at [facility] in [place]. Family History Mother Diabetes Hypertension Grandfather Diabetes maternal Heart disease materal Family/Other Heart disease maternal uncle Diabetes maternal uncle Denies family history of Colon cancer Ovarian cancer Hyperlipidemia Breast cancer Uterine cancer Thyroid condition Stroke Social History Smoking and tobacco status: current every day smoker (pack a day ) cigarettes Packs smoked per day: 1 Years cigarettes smoked: 20 Alcohol intake: current Alcohol intake frequency: holidays/special occasions on ly Marital status: Unknown Number of children: 5 Pets and animals: Yes Pets & animals: cat(s) and dog(s) Female Reproductive History Spontaneous abortions: No Data Anesthesia 02/01/22 10:05 02/01/22 10:05 Short CBC 02/01/22 Range/Units 10:05 WBC 10.3 H (4.0-10.0) 10^3/uL Hgb 13.8 (11.5-15.3) g/dL Hct 42.8 (37.0-47.0) % MCV 94.1 (81-99) fl Plt Count 217 (130-400) 10^3/cmm Neut % (Auto) 61.8 % Neut # (Auto) 6.35 (1.8-7.7) 10^3/uL Cardiac Studies: Echocardiogram 07/10/21
[2022-02-01 11:32] LABS: Bilirubin Urine Neg (Negative); Blood Urine Neg (Negative); Glucose Urine UA 4+ (Normal); Ketones Urine Negative (Negative); Leukocyte Esterase Urine Negative (Negative); Nitrate Urine Negative (Negative); Protein Urine Neg (Negative); Specific Gravity, Urine 1.015 (1.005-1.030); Urine Appearance Clear (CLEAR); Urine Color Yellow (Yellow); Urobilinogen Urine Norm (Negative); pH Urine 5 (5-7)
[2022-02-01 11:37] LABS: Anion Gap 16.3 (5-19); Blood Urea Nitrogen 7 mg/dL (6-20); Calcium 9.3 mg/dL (8.5-10.5); Carbon Dioxide 19 mmol/L (22-29); Chloride 103 mmol/L (98-107); Glomerular Filtration Rate 113.8 mL/min (90-130); Glucose 163 mg/dL (65-115); Osmolality Calculated 280 mOsm/kg (285-295); Potassium 4.3 mmol/L (3.5-5.1); Sodium 134 mmol/L (136-145)
[2022-02-06 11:24] VITALS: BP 98/75; PULSE 77; RESP 18; TEMP 36.6; O2SAT 95
[2022-02-06 11:27] LABS: Glucose Point of Care 144 mg/dL (70-110)
[2022-02-06] MEDS: sodium chloride 0.9% 1,000 ML 30 ML IV (11:30)
[2022-02-06 11:39] LABS: OR HCG Qualitative Urine Negative (Negative)
--- NOTE | 2022-02-06 13:03 | PM.HP ---
Providers/Chief Complaint Admitting Physician: Dr. Cantor/cardiothoracic surgery Primary Care Provider: Jeanette Choudhary DO Chief Complaint: R07.89 History of Present Illness Karrie Marks is a 37 year old female who was referred to our service due to epidermal defects and a previous sternotomy scar. Apparently she had CABG x3, pulmonary valve surgery , and closing holes in her heart approximate 4 years ago at [facility] in [place], [place]. She did state that she had a staph infection x2 postoperatively. I originally saw her back on June 29 concerning discomfort in her mid sternum I do suspect she does have some areas of malunion. Most of the sternotomy incision is healed though there are 2 substantial defects noted in the mid one third. We attempted to obtain insurance approval for CT scan for further precision with delineation, though this was refused x2. PA and lateral chest x-ray are relatively unremarkable though I suspect there may be sternal wire in the base of these 2 epidermal defects. She just completed treatment for a right ear infection and has recovered. She presents today for planned exploration of this portion of the sternotomy scar to see if we can perform revision to relieve these epidermal defects. Potential for major injury was frankly discussed. She and family state understanding. Review of Systems Const: Denies: fever(s), chills, change in appetite, change in weight, fatigue or night sweats Eyes: Denies: change in vision or blurry vision ENMT: Denies: odynophagia or hoarseness Card: Reports: chest pain; Denies: palpitations, irregular heart rhythm, edema or syncope Resp: Denies: dyspnea or productive cough GI: Denies: abdominal pain, nausea, vomiting, dysphagia, heartburn or change in bowel habits : Denies: dysuria, urinary frequency, urinary urgency or urinary hesitancy Musc: Denies: extremity pain or extremity swelling Skin/Breast: Denies: rash Neuro: Denies: headache(s), numbness in extremities, weakness in extremities or sensory changes Psych: Denies: anxiety, depression or change in appetite Abdoul/Lymph: Denies: easy bruising, easy bleeding, petechiae or enlarged lymph nodes Medications/Allergies Home Medications Medication Instructions Recorded Confirmed Last Taken Type melatonin 10 mg PO BEDTIME 09/14/20 02/01/22 02/05/22 History ibuprofen 800 mg tablet 800 mg PO Q8H PRN pain 09/28/20 02/01/22 01/31/22 History lactase 9,000 unit tablet 9,000 unit PO QID PRN Lactose 10/02/21 02/06/22 02/05/22 History Intolerance rosuvastatin 20 mg tablet 20 mg PO DAILY 90 days #90 tabs 10/26/21 02/01/22 02/05/22 Rx blood sugar diagnostic (Blood #50 ea 01/18/22 01/18/22 Unknown Rx Glucose Test strips) blood-glucose meter #1 ea 01/18/22 01/18/22 Unknown Rx cetirizine 10 mg capsule (All Day 10 mg PO DAILY PRN allergy 01/18/22 02/01/22 02/05/22 Rx Allergy (cetirizine)) symptoms #90 caps citalopram 40 mg tablet (Celexa) 40 mg PO DAILY #90 tabs 01/18/22 02/01/22 02/05/22 Rx divalproex 250 mg tablet,extended 250 mg PO DAILY #30 tabs 01/18/22 01/18/22 01/31/22 Rx release 24 hr (Depakote ER) empagliflozin 25 mg tablet 25 mg PO QAM #90 tabs 01/18/22 02/01/22 02/05/22 Rx lancets 25 gauge #100 ea 01/18/22 01/18/22 Unknown Rx metformin 500 mg tablet See Rx Instructions .Route 01/18/22 02/01/22 02/05/22 Rx .COMPLEX #90 tabs tizanidine 2 mg capsule 2 mg PO BID PRN muscle spasticity 01/18/22 02/01/22 02/05/22 Rx 90 days #180 caps trazodone 50 mg tablet 50 mg PO DAILY 90 days #90 tabs 01/18/22 02/01/22 02/05/22 Rx medroxyprogesterone 150 mg/mL 150 mg IM .EVERY 90 DAYS #1 mL 01/23/22 02/01/22 11/28/21 Rx intramuscular suspension (Depo-Provera) Allergies Allergy/AdvReac Type Severity Reaction Status Date / Time adhesive tape Allergy Unknown Verified 02/01/22 10:38 oxycodone [From Percocet] AdvReac Mild leg Verified 02/01/22 10:38 cramps-can take hydrocodone aspirin AdvReac tinitus-can Verified 02/01/22 10:38 take ibuprofen PFSH Acute PFSH: Medical History Bipolar disorder Diagnosed as a teenager and has been on different medications in the past. Has been on Prozac most recently prior to the and during the again managed by her primary care provider. She does not have a psychiatrist or therapist. 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 Patient does not know any details and no cardiology information is available Diabetes mellitus Diagnosed about 3 years ago. Otitis media, serous, TM rupture Surgical History History of ear surgery 20s--reports having reconstructive surgery on her right ear for an abnormality. Does not know details S/P dilation and curettage X 2 2007--D&C done for miscarriage 09/13/2020--dilation [place] [facility] [place] after previable delivery at 23 weeks. -----Pathology showed decidualized endometrium with chronic inflammation, no malignancy Status post cardiac surgery 2017--reports having open heart surgery for a leaky heart valve/blood clot--reports it was triple bypass surgery. Does not really know any details. ------> performed at [facility] in [place]. Family History Mother Diabetes Hypertension Grandfather Diabetes maternal Heart disease materal Family/Other Heart disease maternal uncle Diabetes maternal uncle Denies family history of Colon cancer Ovarian cancer Hyperlipidemia Breast cancer Uterine cancer Thyroid condition Stroke Social History Smoking and tobacco status: current every day smoker (pack a day ) cigarettes Packs smoked per day: 1 Years cigarettes smoked: 20 Alcohol intake: current Alcohol intake frequency: holidays/special occasions only Marital status: Unknown Number of children: 5 Pets and animals: Yes Pets & animals: cat(s) and dog(s) Female Reproductive History: Spontaneous abortions: No Vitals/I&O/Wt Last Vital Signs Temp 97.9 F 02/06/22 11:24 Pulse 77 02/06/22 11:24 Resp 18 02/06/22 11:24 BP 98/75 02/06/22 11:24 Pulse Ox 95 02/06/22 11:24 O2 Del Method 02/06/22 11:24 Physical Exam HENMT: COMMON NORMALS: normocephalic, atraumatic, external ears normal and Normal external nose present; hearing grossly not normal bilaterally Eye: COMMON NORMALS: Equal, round and reactive pupils present and EOMs intact bilaterally Neck/C-Spine: COMMON NORMALS: full ROM and no lymphadenopathy Chest: OTHER: Some midline motion noted with mild discomfort but without click. Healed sternotomy scar except for 2 areas of deep epidermal depressions in the mid one third. No active drainage. Resp: COMMON NORMALS: clear to auscultation bilaterally Cardio: COMMON NORMALS: regular rate, regular rhythm, S1 normal heart sound present and No murmurs present (Cardio) GI: COMMON NORMALS: Normal to inspection, nondistended, normoactive bowel sounds present Extremity: COMMON NORMALS: no clubbing, cyanosis or edema Data 02/01/22 10:05 02/01/22 10:05 A&P Assessment and plan (1) Sternal manubrial dissociation with nonunion: Plan We will plan to perform local exploration of these areas of defects. Fluoroscopy will be available for assessment as to whether they may be wire the base of these lesions which may be contributing to the chronicity and formation. Potential injury to major cardiac structures were frankly discussed. Ms. Marks and family state understanding and wished to proceed. Appropriate consents have been provided for review and signature. Attestations Medical Necessity Statement*: Partial sternal malunion with epidermal defect status post cardiac surgery 2018. Coding Level of Care Code Acute Leathersmith for Chg Fwd Diagnoses Sternal manubrial dissociation with nonunion S22.23XK
[2022-02-06] MEDS: ceFAZolin 2,000 MG in sodium chloride 0.9% (plus) 50 ML 100 MG IV (13:14)
--- NOTE | 2022-02-06 13:55 | P.ANESUD_ITS ---
Pre-Anesthetic Update Pre-Anesthetic Assessment: Date of Surgery/Procedure: 02/06/22 Preop Shira gnosis: Sternal incision pain Proposed Procedure: Operation Date: 02/06/22 12:45 Proposed Procedures p Sternal Wire Removal 11899,R07.89(Not Applicable) - Deondre Cantor MD Any changes to Pre-Anesthetic Assessment?: No Last Intake: Intake Last Liquid Date 02/05/22 Last Liquid Time 23:30 Last Solid Date 02/05/22 Last Solid Time 21:00 Vitals: Temperature 97.9 F 02/06/22 11:24 Temperature Source Temporal Artery S can 02/06/22 11:24 Pulse Rate 77 02/06/22 11:24 Respiratory Rate 18 02/06/22 11:24 Blood Pressure 98/75 02/06/22 11:24 Blood Pressure Vijaya n 82 02/06/22 11:24 Pulse Oximetry 95 02/06/22 11:24 Oxygen Delivery Me thod 02/06/22 11:24 Exam: Pre-Anes Outpt Exam: alert, oriented x 3, clear to auscultation bilaterally and regular rate & rhythm Cardiac Studies: Echocardiogram 07/10/21
[2022-02-06] MEDS: lidocaine 1% INJ 20 mL XX (13:59)
[2022-02-06] MEDS: ceFAZolin 1,000 mg SDV 1000 MG IRRIGATION (14:00)
[2022-02-06 15:16] VITALS: BP 90/62; PULSE 105; RESP 18; TEMP 36.9; O2SAT 92
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
[2022-02-06 15:20] VITALS: BP 90/59; PULSE 110; RESP 20; O2SAT 92
[2022-02-06 15:25] VITALS: BP 94/67; PULSE 107; RESP 15; O2SAT 92
[2022-02-06 15:34] VITALS: BP 100/72; PULSE 102; RESP 18; TEMP 36.9; O2SAT 94
[2022-02-06] MEDS: TRAMadol 50 mg Tablet PO (16:02)
--- NOTE | 2022-02-06 16:33 | ANE.PACU2 ---
Inpatient post-anesthesia follow up: Airway intact: Yes Vital signs: Temperature 98.5 F Pulse Rate 102 Respiratory Rate 18 Blood Pressure 100/72 Pulse Oximetry 94 Oxygen Delivery Me thod Room Air Oxygen Flow Rate Fraction of Inspir ed Oxygen Hydration adequate: Yes Nausea and vomiting: No Pain level: 3 Mental status: Baseline
== END 2022-02-06 16:21 | disposition home or self-care (01) ==
PROVIDERS: Anesthesiology; PCP Family Medicine; Visit Provider Thoracic Surgery (Cardiothoracic Vascular Surgery)
PROC: (CPT 20680; principal; 2022-02-06 12:35)
DX: T84.84XA Pain due to internal orthopedic prosthetic devices, implants and grafts, initial encounter (principal); S22.23XK Sternal manubrial dissociation, subsequent encounter for fracture with nonunion; X58.XXXD Exposure to other specified factors, subsequent encounter; I25.10 Atherosclerotic heart disease of native coronary artery without angina pectoris; Z95.1 Presence of aortocoronary bypass graft; E11.9 Type 2 diabetes mellitus without complications; E78.5 Hyperlipidemia, unspecified; Z79.84 Long term (current) use of oral hypoglycemic drugs; F17.210 Nicotine dependence, cigarettes, uncomplicated
CPT/HCPCS: 20680; 36415; 36416; 80048; 81003; 82962; 84703; 85025; 86850; 86900; 86920; 93005; J0690; J1100; J2250; J2405; J2704; J3010; J7030

== ENCOUNTER 2022-02-15 11:19 | Outpatient (CLI) | payer BC, MEDICAID, SELFPAY ==
--- NOTE | 2022-02-15 11:41 | CTR_ITS ---
PROCEDURE INFORMATION: Exam: CT Temporal Bones Without Contrast. Exam date and time: 02/15/2022 11:49 AM Age: 37 years old Clinical indication: Pain; Other: Otalgia; Prior surgery; Surgery type: Ear drum reconstruction; Additional info: Otalgia, R ear/disorders of R middle ear mastoid TECHNIQUE: Imaging protocol: Computed tomography of the temporal bones without contrast. Total images: 2 Radiation optimization: All CT scans at this facility use at least one of these dose optimization techniques: automated exposure control; mA and/or kV adjustment per patient size (includes targeted exams where dose is matched to clinical indication); or iterative reconstruction. COMPARISON: No relevant prior studies available. RADIATION DOSE METRICS: Total DLP (mGy-cm): 342.78 FINDINGS: Right inner ear: Normal. 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 Right external auditory canal: Normal. Right facial nerve canal: Normal. Right jugular foramen: No jugular dehiscence. Right carotid canal: No aberrant carotid canal. Right mastoid air cells: Opacified right tympanic cavity and mastoid air cells. Left inner ear: Normal. Left ossicles and middle ear: Normal. The middle ear ossicles are intact. Left external auditory canal: Normal. Left facial nerve canal: Normal. Left jugular foramen: No jugular dehiscence. Left carotid canal: No aberrant carotid canal. Left mastoid air cells: Normal. No mastoid effusions. Paranasal sinuses: Mucosal thickening seen in the inferior frontal, ethmoid, sphenoid, and maxillary sinuses. Mucous stranding seen in maxillary sinuses with air-fluid levels. Soft tissues: Unremarkable. CT/CT temporal bone wo con* [id number] IMPRESSION: 1. Opacified right tympanic cavity and mastoid air cells. 2. 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 3. Normal left temporal bone.
== END 2022-02-15 11:20 | disposition home or self-care (01) ==
LOC: RAD 11:20
PROVIDERS: PCP Family Medicine; Visit Provider Otolaryngology
DX: H92.01 Otalgia, right ear (principal)
CPT/HCPCS: 70480; 83880; 84443

== ENCOUNTER 2022-03-27 09:13 | Outpatient (CLI) | payer BC, MEDICAID, SELFPAY ==
--- NOTE | 2022-03-27 09:22 | XR_ITS ---
WS: [id number] Exam: XR lumbar spine 2-3V* [id number] Date/Time of Exam: 03/27/2022 9:25 AM Reason For Exam: low back pain No fracture or dislocation. Disc spaces are preserved. Posterior elements are intact. No significant scoliosis. XR/XR lumbar spine 2-3V* [id number] IMPRESSION: 1. Negative lumbar spine study.
== END 2022-03-27 09:14 | disposition home or self-care (01) ==
PROVIDERS: PCP Family Medicine; Visit Provider Family Medicine
DX: M54.50 Low back pain, unspecified (principal)
CPT/HCPCS: 72100

== ENCOUNTER 2022-04-11 08:37 | Emergency (ER) | payer BC, MEDICAID, SELFPAY ==
[2022-04-11 08:42] VITALS: BP 103/73; PULSE 89; RESP 14; TEMP 36.2; O2SAT 93; BMI 28.5
--- NOTE | 2022-04-11 08:46 | W.ED.BACK ---
HPI - Back Pain/Injury General: Chief Complaint: Back Pain/Injury Stated Complaint: back pain Time Seen by Provider: 04/11/22 08:45 Source: patient Mode of arrival: ambulatory Limitations: no limitations History of Present Illness: Patient is a 37-year-old female who presents to the ED today with a complaint of diffuse back pain. Patient states she has a longstanding history of chronic back pain. She states over the past several days her back pain has seemed to be worse than normal. No known injury or trauma. She is reporting pain up and down my entire spine . Patient has seen her PCP for this who has ordered x-rays. She states she was told she has bone spurs . Patient is not having any neurologic symptoms. MD elicited complaint: back pain Pertinent past history: prior back pain Onset (ago): day(s) Timing: constant Severity: moderate Similar Symptoms Previously: Yes Location: lumbar spine and thoracic spine Radiation: none Exacerbating factors: movement Relieving factors: none Associated symptoms: Reports no associated symptoms; Deny abdominal pain, chills, difficulty walking, dysuria, fatigue, fever(s) or hematuria Treatments prior to arrival: NSAIDS and other medications Work related injury: No Review of Systems Const: Denies: fever(s), chills, body aches, fatigue or malaise Card: Denies: chest pain Resp: Denies: dyspnea GI: Denies: abdominal pain : Denies: flank pain, dysuria or hematuria Musc: Reports: back pain; Denies: neck pain, extremity pain, extremity swelling, joint pain, joint swelling, joint redness, joint warmth or limited range of motion Skin/Breast: Denies: rash Neuro: Denies: headache(s), numbness in extremities, weakness in extremities, sensory changes or difficulty walking [facility] ED PFSH: Medical History Bipolar disorder Diagnosed as a teenager and has been on different medications in the past. Has been on Prozac most recently prior to the and during the again managed by her primary care provider. She does not have a psychiatrist or therapist. 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 Patient does not know any details and no cardiology information is available Diabetes mellitus Diagnosed about 3 years ago. Otitis media, serous, TM rupture Surgical History History of ear surgery 20s--reports having reconstructive surgery on her right ear for an abnormality. Does not know details S/P dilation and curettage X 2 2007--D&C done for miscarriage 09/13/2020--dilation and curettage performed by Dr. Chapin at [facility] [place] for retained placenta after previable delivery at 23 weeks. -----Pathology showed decidualized endometrium with chronic inflammation, no malignancy Status post cardiac surgery 2018--reports having open heart surgery for a leaky heart valve/blood clot--reports it was triple bypass surgery. Does not really know any details. ------> performed at [facility] in [place]. Family History Mother Diabetes Hypertension Grandfather Diabetes maternal Heart disease materal Family/Other Heart disease maternal uncle Diabetes maternal uncle Denies family history of Colon cancer Ovarian cancer Hyperlipidemia Breast cancer Uterine cancer Thyroid condition Stroke Social History Smoking and tobacco status: current every day smoker (pack a day ) cigarettes Packs smoked per day: 1 Years cigarettes smoked: 20 Alcohol intake: current Alcohol intake frequency: holidays/special occasions only Marital status: Unknown Number of children: 5 Pets and animals: Yes Pets & animals: cat(s) and dog(s) Female Reproductive History: Spontaneous abortions: No Physical Exam Const: COMMON NORMALS: no acute distress, average body habitus, patient oriented x3, no limitations, alert and well nourished GENERAL APPEARANCE: cooperative ORIENTATION/CONSCIOUSNESS: Yes awake, Yes oriented to person, Yes oriented to place and Yes oriented to time HENMT: COMMON NORMALS: normocephalic and atraumatic HEAD & SCALP: normal to inspection, normocephalic and atraumatic Neck/C-Spine: COMMON NORMALS: full ROM CERVICAL SPINE: Yes cervical ROM normal, Yes Cervical spine tenderness, No step off deformity and No Paracervical muscle tenderness Resp: COMMON NORMALS: normal respiratory effort and clear to auscultation bilaterally AUSCULTATION: clear to auscultation bilaterally Cardio: COMMON NORMALS: regular rate and regular rhythm RATE: regular rate RHYTHM: regular rhythm GI: COMMON NORMALS: Normal to inspection, nondistended, normoactive bowel sounds present, Soft to palpation and non-tender PALPATION: Yes Soft to palpation Back/Pelvis: COMMON NORMALS: straight leg raise negative bilaterally THORACIC SPINE/UPPER BACK: Yes pain with ROM, Yes thoracic spinal tenderness, No paraspinal muscle tenderness and No paraspinal muscle spasm LUMBAR SPINE/LOWER BACK: Yes pain with ROM, Yes lumbar spinal tenderness, No paraspinal muscle tenderness, No paraspinal muscle spasm and Yes straight leg raise negative bilaterally PELVIS: Yes buttocks normal SACROILIAC JOINTS: Yes SI joints normal SACRUM: no tenderness COCCYX: no tenderness Extremity: COMMON NORMALS: normal to inspection and full ROM GENERAL: Yes normal exam except as noted Neuro: DENISSE COMA SCALE: document GCS findings [employer] coma scale eye opening: Spontaneous [employer] coma scale verbal response: Orientated Denisse coma scale motor response: Obey commands Denisse coma scale total score: 15 COMMON NORMALS: patient oriented x3, moves all extremities, no focal motor deficits, no sensory deficits noted and gait normal SENSORIUM/ORIENTATION: Yes alert, Yes oriented to person, Yes oriented to place and Yes oriented to time MOTOR EXAM: 5/5 motor strength present throughout Skin: COMMON NORMALS: no rashes or lesions noted GENERAL SKIN EXAM: no rashes or lesions noted Course Vital Signs: Vital signs: Vital Signs Temperature 97.1 F L 04/11/22 08:42 Pulse Rate 89 04/11/22 08:42 Respiratory Rate 14 04/11/22 08:42 Blood Pressure 103/73 04/11/22 08:42 Pulse Oximetry 93 04/11/22 08:42 Oxygen Delivery Ak thod 04/11/22 08:42 MDM - Back Pain/Injury Medical Decision Making Patient is already Zanaflex and Meloxicam daily for chronic pains. We will place her on a Medrol Dosepak and have her follow-up with PCP. Return to ED precautions given. Discharge Plan Discharge Patient Disposition: Home Clinical Impression: Chronic midline back pain Qualifiers: Back pain location: back pain in unspecified location Qualified Code(s): M54.9 - Dorsalgia, unspecified Condition: Stable Prescriptions: New Medrol (David) 4 mg tablets,dose pack See Rx Instructions .ROUTE .COMPLEX Qty: 21 0RF Rx Instructions: orally per package directions No Action (DME) blood-glucose meter Misc See Rx Instructions .MEDSUPPLY Qty: 1 0RF Rx Instructions: As directed (DME) Blood Glucose Test Strip See Rx Instructions .MEDSUPPLY Qty: 50 5RF Rx Instructions: bid (DME) lancets 25 gauge misc See Rx Instructions .MEDSUPPLY Qty: 100 5RF Rx Instructions: As directed divalproex [Depakote ER] 250 mg tablet extended release 24 hr 250 mg PO DAILY Qty: 90 0RF tizanidine 4 mg tablet 4 mg PO BID PRN (Reason: muscle spasticity) Qty: 60 1RF lactase 9,000 unit tablet 9,000 unit PO QID PRN (Reason: Lactose Intolerance) Rx Instructions: administer with meals and/or snacks citalopram [Celexa] 40 mg tablet 40 mg PO DAILY Qty: 90 0RF All Day Allergy (cetirizine) 10 mg capsule 10 mg PO DAILY PRN (Reason: allergy symptoms) Qty: 90 1RF rosuvastatin 20 mg tablet 20 mg PO DAILY 90 Days Qty: 90 3RF empagliflozin 25 mg tablet 25 mg PO QAM Qty: 90 1RF metformin 500 mg tablet See Rx Instructions .ROUTE .COMPLEX Qty: 90 1RF Dose Instruction: TAKE 1 TABLET (500 MG) BY MOUTH 2 TIMES DAILY WITH MEALS. *NEEDS APPOINTMENT BEFORE NEXT REFILL* Rx Instructions: TAKE 1 TABLET (500 MG) BY MOUTH 2 TIMES DAILY WITH MEALS. trazodone 50 mg tablet 50 mg PO DAILY 90 Days Qty: 90 1RF medroxyprogesterone [Depo-Provera] 150 mg/mL suspension 150 mg IM .EVERY 90 DAYS Qty: 1 0RF ropinirole 2 mg tablet 2 mg PO BID 30 Days Qty: 60 0RF meloxicam 15 mg tablet 15 mg PO DAILY Qty: 30 0RF Rx Instructions: Take with food promethazine-DM 6.25-15 mg/5 mL syrup 5 ml PO Q6H PRN (Reason: cough) Qty: 60 0RF melatonin 10 mg PO BEDTIME Discharge Orders: Discharge ED (Routine); Ordered 04/11/22 Ordered By: Carey Fields Referrals: Jeanette Choudhary DO [Primary Care Provider] - Activity Restrictions/Additional Instructions: As we discussed please follow-up with your primary care provider Dr. Lambert if symptoms do not seem to be improving over the next 3 to 5 days. Coding Level of Care Code ED [place] Machine Operator for Ryan Cruz
== END 2022-04-11 09:03 | disposition home or self-care (01) ==
PROVIDERS: Emergency Provider Physician Assistant; PCP Family Medicine
DX: M54.9 Dorsalgia, unspecified (principal)
CPT/HCPCS: 99283

== ENCOUNTER 2022-04-19 06:50 | Outpatient (CLI) | payer BC, MEDICAID, SELFPAY ==
--- NOTE | 2022-04-19 07:15 | US_ITS ---
WS: [id number] RIGHT UPPER QUADRANT ULTRASOUND HISTORY: elevated lft's COMPARISON: None available. Liver: 17.5 cm in length. Liver is top normal size. Mild heterogeneity and decreased echogenicity fro m hepatic steatosis. No mass or bile duct dilatation. Focal fatty sparing adjacent to the gallbladder . Portal Vein: Normal hepatopetal flow with monophasic waveform. Gallbladder: Normally distended gallbladder with no stones or wall thickening. CBD: 0.3 cm Pancreas: Small caliber pancreas and partially visualized. Appears fatty replaced. Right kidney: 9.5 cm in length. Normal size and echogenicity. No hydronephrosis or mass. Aorta and IVC: Unremarkable abdominal aorta and IVC. No ascites. US/US liver [id number] IMPRESSION: 1. Negative gallbladder. 2. Liver top normal size with areas of hepatic steatosis and fatty sparing.
== END 2022-04-19 06:51 | disposition home or self-care (01) ==
LOC: RAD 06:50
PROVIDERS: PCP Family Medicine; Visit Provider Family Medicine
DX: R74.01 Elevation of levels of liver transaminase levels (principal)
CPT/HCPCS: 76705

== ENCOUNTER → 2022-05-15 08:58 | Outpatient (BNVA) | payer BC, MEDICAID, SELFPAY | PROVIDERS: PCP Family Medicine; Visit Provider Family Medicine | DX: M54.50 Low back pain, unspecified (principal); E11.9 Type 2 diabetes mellitus without complications; M54.2 Cervicalgia | CPT/HCPCS: 80053; 83036 ==

== ENCOUNTER 2022-05-16 08:53 | Outpatient (CLI) | payer BC, MEDICAID, SELFPAY ==
--- NOTE | 2022-05-16 09:10 | XR_ITS ---
WS: [id number] XR cervical spine 3V* [id number] REASON FOR EXAM: acute neck pain FINDINGS: Slight reversal of the normal cervical lordosis. Normal odontoid and normal cervical vertebral bodies. Intervertebral disc spaces are well preserved. Mild vertebral body osteophytosis C4-C7. No significant listhesis. Facet joints are unremarkable. XR/XR cervical spine 3V* [id number] IMPRESSION: Minimal changes of degenerative spondylosis.
== END 2022-05-16 08:54 | disposition home or self-care (01) ==
LOC: RAD 08:58
PROVIDERS: PCP Family Medicine; Visit Provider Family Medicine
DX: M47.812 Spondylosis without myelopathy or radiculopathy, cervical region (principal)
CPT/HCPCS: 72040

== ENCOUNTER → 2022-05-23 12:03 | Outpatient (BNVA) | payer BC, MEDICAID, SELFPAY | PROVIDERS: PCP Family Medicine; Visit Provider Anesthesiology Pain Medicine | DX: M47.894 Other spondylosis, thoracic region (principal); M47.892 Other spondylosis, cervical region; G89.29 Other chronic pain | CPT/HCPCS: 72040; 72074 ==

== ENCOUNTER 2022-06-26 06:08 | Outpatient (CLI) | payer BC, MEDICAID, SELFPAY | END 2022-06-26 06:09 | disposition home or self-care (01) | LOC: SLEEP 06-27 06:09 | PROVIDERS: PCP Family Medicine; Visit Provider Internal Medicine | DX: G47.10 Hypersomnia, unspecified (principal); R06.83 Snoring | CPT/HCPCS: 95810 ==

== ENCOUNTER → 2022-06-27 08:37 | Outpatient (BNVA) | payer BC, MEDICAID, SELFPAY | PROVIDERS: PCP Family Medicine; Visit Provider Family Medicine | DX: R53.83 Other fatigue (principal) | CPT/HCPCS: 82306; 82607 ==

== ENCOUNTER 2022-07-05 15:43 | Outpatient (CLI) | payer BC, MEDICAID, SELFPAY ==
--- NOTE | 2022-07-05 15:46 | XR_ITS ---
WS: [id number] XR knee RT 3V* [id number] REASON FOR EXAM: acute on chronic bilateral knee pain FINDINGS: No fracture or focal bone lesion. The medial and lateral joints are intact and well preserved. Patellofemoral joint space is intact and well preserved. No soft tissue abnormality. XR/XR knee RT 3V* [id number] IMPRESSION: No significant abnormality.
--- NOTE | 2022-07-05 15:46 | XR_ITS ---
WS: [id number] XR knee LT 3V* [id number] REASON FOR EXAM: acute on chronic bilateral knee pain FINDINGS: No fracture or focal bone lesion. Medial and lateral joint spaces are intact and well preserved. There is mild subchondral sclerosis in the medial knee joint space. Patellofemoral joint space is intact. No soft tissue abnormality. XR/XR knee LT 3V* [id number] IMPRESSION: Minimal arthropathic changes above.
== END 2022-07-05 15:44 | disposition home or self-care (01) ==
LOC: RAD 15:46
PROVIDERS: PCP Family Medicine; Visit Provider Family Medicine
DX: M25.561 Pain in right knee (principal); M25.562 Pain in left knee
CPT/HCPCS: 73562

== ENCOUNTER 2022-10-08 10:55 | Outpatient (CLI) | payer BC, MEDICAID, SELFPAY ==
--- NOTE | 2022-10-08 | MR_ITS ---
WS: [id number] MRI CERVICAL SPINE NONCONTRAST HISTORY: STENOSIS COMPARISON: None available. Technique: Multiplanar, multisequence noncontrast imaging of the cervical spine. Mild straightening and slight reversal of the normal cervical lordosis. This is probably positional o r due to mild spasm. No fractures. Signal within the cervical cord is normal. Visualized posterior fossa is unremarkable. Craniocervical junction, C1 and C2 relationship, odontoid process and soft tissues are normal. C2-C3: Normal. C3-C4: Normal. C4-C5: Normal. C5-C6: Shallow central disc protrusion with mild effacement of ventral CSF but no contact on the cord . C6-C7: Normal. C7-T1: Normal. Nerve root sleeve diverticulum on the RIGHT at T1-2. MR/MR cervical spin wo con* [id number] IMPRESSION: 1. No high-grade central or foraminal stenosis. 2. Shallow central disc protrusion at C5-6 without cord contact.
--- NOTE | 2022-10-08 | MR_ITS ---
WS: [id number] MRI LUMBAR SPINE NONCONTRAST HISTORY: STENOSIS COMPARISON: None available. TECHNIQUE: Sagittal and axial multisequence imaging is submitted. Normal lumbar alignment with no compression fractures or marrow edema. Disc spaces and vertebral body heights are well-preserved. Conus terminates normally at L1-2 disc level. T11-12: Mild disc bulging versus shallow central disc protrusion with mild encroachment upon the vent ral thecal sac. L1-L2: Normal. L2-L3: Normal. L3-L4: Small amount of fluid in the facet joints. No stenosis. Mild facet and ligamentum flavum arthr itis. L4-L5: Very mild annular disc bulging with mild ligamentum flavum hypertrophy. Mild encroachment upon the subarticular recesses and traversing L5 nerve roots. L5-S1: Mild annular disc bulge with a central disc protrusion. Very minimal contact on the traversing S1 nerve roots. Very mild facet joint arthritis. Paravertebral soft tissues are normal. MR/MR lumbar spine wo con* [id number] IMPRESSION: 1. Mild facet joint arthritis at L3-4 to L5-S1. 2. There is mild subarticular recess encroachment by disc disease at L4-5 and L5-S1. 3. Shallow central disc protrusion at L5-S1 with minimal contact on the S1 ner ve roots.
== END 2022-10-08 10:56 | disposition home or self-care (01) ==
LOC: RAD 10:56
PROVIDERS: PCP Family Medicine; Visit Provider Anesthesiology Pain Medicine
DX: M54.12 Radiculopathy, cervical region (principal); M47.817 Spondylosis without myelopathy or radiculopathy, lumbosacral region; M51.36 Other intervertebral disc degeneration, lumbar region; M51.27 Other intervertebral disc displacement, lumbosacral region
CPT/HCPCS: 72141; 72148

== ENCOUNTER 2022-11-03 21:48 | Emergency (ER) | payer BC, MEDICAID, SELFPAY ==
[2022-11-03 21:51] VITALS: BP 114/71; PULSE 87; RESP 16; TEMP 36.4; O2SAT 94; BMI 27.9
--- NOTE | 2022-11-03 23:50 | XRR_ITS ---
PROCEDURE INFORMATION: Exam: XR Facial Bones, Minimum of 3 Views, Complete Exam date and time: 11/04/2022 12:13 AM Age: 37 years old Clinical indication: Nose pain; Patient HX: C/O nasal pain. No recent injury. ; Additional info: Trauma TECHNIQUE: Imaging protocol: XR of the facial bones, minimum of 3 views. Complete exam. COMPARISON: CT temporal bone wo con* [id number] 02/15/2022 11:49 AM FINDINGS: Sinuses: Well aerated. No opacification. Bones/joints: No fracture. Dental: Patient is edentulous. Soft tissues: Unremarkable. XR/XR facial bones <3V [id number] IMPRESSION: 1. Negative for fracture or dislocation. 2. Patient is edentulous.
--- NOTE | 2022-11-03 23:50 | XRR_ITS ---
PROCEDURE INFORMATION: Exam: XR Right Forearm Exam date and time: 11/04/2022 12:09 AM Age: 37 years old Clinical indication: Lower or forearm; Right; Patient HX: C/O RT forearm pain. No recent injury. ; Additional info: Trauma TECHNIQUE: Imaging protocol: Radiologic exam of the right forearm. Views: 2 views. COMPARISON: No relevant prior studies available. FINDINGS: Bones/joints: Normal. Soft tissues: Normal. XR/XR forearm RT 2V [id number] IMPRESSION: No acute findings.
[2022-11-04] MEDS: TRAMadol 50 mg Tablet PO (00:19)
--- NOTE | 2022-11-04 00:22 | W.ED.EXTPRO ---
HPI - Extremity Problem General: Chief complaint: Extremity Injury, Upper Stated complaint: Rt Arm Injury Time Seen by Provider: 11/03/22 23:00 History of Present Illness: Patient is a [id number] 37-year-old female that presents to the emergency department with complaints of right forearm pain and right nasal pain. Patient reports she was struck in the nose today by her dog. She also reports ongoing right forearm pain. Patient believes it is from her 2 small dogs jumping up on her right arm. She has no evidence of trauma. She denies any other type of injury There is no ecchymosis or wounds Associated symptoms: Deny chest pain, fever(s) or rash Review of Systems General: Reports: 10 or more systems reviewed and unremarkable except in HPI and below Const: Denies: fever(s), chills, change in appetite, change in weight, fatigue or malaise Eyes: Denies: change in vision, eye discomfort, eye discharge or eye redness ENMT: Denies: throat pain, enlarged tonsils, odynophagia, hoarseness, ear or mastoid pain, ear discharge, change in hearing, tinnitus, nasal discharge, nasal congestion, post nasal drip or sinus pain Card: Denies: chest pain, palpitations, irregular heart rhythm, edema, dyspnea on exertion, orthopnea or leg pain with exertion Resp: Denies: dyspnea, productive cough, non-productive cough, wheezing, stridor or chest congestion GI: Denies: abdominal pain, nausea, vomiting, dysphagia, diarrhea, constipation, bloating, GI cramping or hematochezia : Denies: flank pain, difficulty voiding, dysuria, urinary frequency, urinary urgency, urinary hesitancy, oliguria or hematuria Musc: Denies: neck pain, back pain, extremity pain, joint pain, joint swelling, joint redness, joint warmth or muscle weakness Skin/Breast: Denies: rash, pruritus, erythema, photosensitivity or new lesions Neuro: Denies: headache(s), numbness in extremities, weakness in extremities, sensory changes, lack of coordination, difficulty walking, frequent falls, dizziness, confusion, Slurred speech present, difficulty communicating thoughts, seizure-like activity or involuntary movements Endo: Denies: polyuria, polydipsia or tired all the time Abdoul/Lymph: Denies: easy bruising or easy bleeding PFSH ED PFSH: Medical History Bipolar disorder Diagnosed as a teenager and has been on different medications in the past. Has been on Prozac most recently prior to the and during the again managed by her primary care provider. She does not have a psychiatrist or therapist. 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 Patient does not know any details and no cardiology information is available Diabetes mellitus Diagnosed about 3 years ago. Otitis media, serous, TM rupture Surgical History History of ear surgery 20s--reports having reconstructive surgery on her right ear for an abnormality. Does not know details S/P dilation and curettage X 2 2007--D&C done for miscarriage 09/13/2020--dilation and curettage performed by Dr. Chapin at [facility] for retained placenta after previable delivery at 23 weeks. -----Pathology showed decidualized endometrium with chronic inflammation, no malignancy Status post cardiac surgery 2017--reports having open heart surgery for a leaky heart valve/blood clot--reports it was triple bypass surgery. Does not really know any details. ------> performed at [facility] in [place]. Family History Mother Diabetes Hypertension Grandfather Diabetes maternal Heart disease materal Cancer lung (smoker) Family/Other Heart disease maternal uncle Diabetes maternal uncle Denies family history of Colon cancer Ovarian cancer Hyperlipidemia Breast cancer Uterine cancer Thyroid condition Stroke Social History Smoking and tobacco status: current every day smoker (pack a day ) cigarettes Packs smoked per day: 1 Years cigarettes smoked: 23 Quit status (tobacco): not considering quitting Alcohol intake: never Substance/Drug Use: never Household members: family Marital status: Number of children: 5 Current occupational status: unemployed Current occupation: [employer] july 05, 2022 Pets and animals: Yes Pets & animals: cat(s) and dog(s) Female Reproductive History: Spontaneous abortions: No Physical Exam Const: COMMON NORMALS: no acute distress, patient oriented x3 and alert GENERAL APPEARANCE: cooperative ORIENTATION/CONSCIOUSNESS: Yes awake, Yes oriented to person, Yes oriented to place and Yes oriented to time HENMT: COMMON NORMALS: normocephalic and atraumatic HEAD & SCALP: normocephalic and atraumatic FACE & SINUS: normal facial exam MOUTH: Normal oral and palatal mucosa present THROAT: posterior oropharynx normal Eye: COMMON NORMALS: Equal, round and reactive pupils present, EOMs intact bilaterally, conjunctivae normal and no scleral icterus GENERAL EYE: appearance normal, both eyes and all related structures ALIGNMENT: Yes alignment normal PERIORBITAL: periorbital findings normal CONJUNCTIVA: Yes conjunctivae normal PUPIL: Yes Equal, round and reactive pupils present Neck/C-Spine: COMMON NORMALS: full ROM GENERAL: Yes normal visual inspection Lymph: LYMPHATIC: no lymphadenopathy noted Chest: COMMONS NORMALS: normal inspection of the chest Breast/axilla inspection: Yes no chest deformity, asymmetry, normal contours, no nodules, masses, tenderness Resp: COMMON NORMALS: normal respiratory effort, No retractions, No use of accessory muscles and clear to auscultation bilaterally EFFORT & INSPECTION: Yes able to speak in complete sentences and Yes symmetric chest movement AUSCULTATION: clear to auscultation bilaterally Cardio: COMMON NORMALS: regular rate, regular rhythm and Peripheral pulses 2+ throughout RATE: regular rate RHYTHM: regular rhythm PERIPHERAL PULSES: Peripheral pulses 2+ throughout GI: COMMON NORMALS: Normal to inspection, nondistended, normoactive bowel sounds present, Soft to palpation, non-tender and No hepatosplenomegaly present INSPECTION: Yes normal to inspection AUSCULTATION: Yes normoactive bowel sounds PALPATION: Yes Soft to palpation and Yes No hepatosplenomegaly present RECTAL EXAM: deferred Extremity: COMMON NORMALS: normal to inspection NARRATIVE EXTREMITY EXAM: Right upper extremity: Skin is clean dry and intact ecchymosis edema or wounds present Patient has full active range of motion of shoulder, elbow, wrist Patient is able to give a thumbs up, make an okay sign, cross fingers, abduct fingers and make a fist sensations intact light touch at axillary, radial, median nerve distribution Radial pulses palpable and cap refills less than 3 seconds 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, bicep, 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 strength bilateral upper extremities GENERAL: Yes normal exam except as noted Neuro: COMMON NORMALS: patient oriented x3 SENSORIUM/ORIENTATION: Yes alert, Yes oriented to person, Yes oriented to place and Yes oriented to time CRANIAL NERVES: Yes CN normal except as noted Psych: COMMON NORMALS: mental status grossly normal, Normal thought process present, cooperative, activity/motor behavior normal, denies homicidal ideation and denies suicidal ideation THOUGHT PROCESS: Normal thought process present Skin: COMMON NORMALS: no rashes or lesions noted, no wounds and turgor normal GENERAL SKIN EXAM: no rashes or lesions noted and turgor normal Course Vital Signs: Vital signs: Vital Signs Temperature 97.6 F 11/03/22 21:51 Pulse Rate 87 11/03/22 21:51 Respiratory Rate 16 11/03/22 21:51 Blood Pressure 114/71 11/03/22 21:51 Pulse Oximetry 94 11/03/22 21:51 Oxygen Delivery Me thod Room Air 11/03/22 21:51 MDM - Extremity (Nontraumatic) Medical Decision Making Patient was evaluated in the emergency department due to concerns of right arm pain and nasal pain Patient underwent XR imaging no acute fracture, dislocation, retained foreign body in the forearm. XR imaging of the facial bones reveals no acute fractures Discharge Plan Discharge Patient Disposition: Home Clinical Impression: Contusion of soft tissue, Inflammation Condition: Stable Prescriptions: No Action (DME) blood-glucose meter Misc See Rx Instructions .MEDSUPPLY Qty: 1 0RF Rx Instructions: As directed (DME) Blood Glucose Test Strip See Rx Instructions .MEDSUPPLY Qty: 50 5RF Rx Instructions: bid (DME) lancets 25 gauge misc See Rx Instructions .MEDSUPPLY Qty: 100 5RF Rx Instructions: As directed acetaminophen [Tylenol Arthritis Pain] 650 mg tablet extended release 650 mg PO Q12H ibuprofen 200 mg tablet 200 mg PO Q6H PRN Jardiance 25 mg tablet 25 mg PO DAILY Qty: 90 1RF divalproex [Depakote ER] 250 mg tablet extended release 24 hr 250 mg PO DAILY Qty: 90 1RF rosuvastatin 20 mg tablet 20 mg PO DAILY 90 Days Qty: 90 1RF metformin 1,000 mg tablet 1,000 mg PO BID Qty: 60 2RF trazodone 100 mg tablet 100 mg PO DAILY Qty: 30 1RF buspirone 10 mg tablet 10 mg PO BID Qty: 60 0RF amoxicillin 500 mg tablet 500 mg PO BID Qty: 14 0RF lactase 9,000 unit tablet 9,000 unit PO QID PRN (Reason: Lactose Intolerance) Rx Instructions: administer with meals and/or snacks All Day Allergy (cetirizine) 10 mg capsule 10 mg PO DAILY PRN (Reason: allergy symptoms) Qty: 90 1RF (DME) diabetic shoes See Rx Instructions .Route .MEDSUPPLY Qty: 1 0RF Rx Instructions: As directed topiramate 50 mg tablet 50 mg PO BID 30 Days Qty: 60 0RF meloxicam 15 mg tablet 15 mg PO DAILY Qty: 30 0RF Rx Instructions: Take with food (DME) diabetic shoes See Rx Instructions .Route .MEDSUPPLY Qty: 1 0RF Rx Instructions: As directed ropinirole 2 mg tablet 2 mg PO BID Qty: 180 1RF Rx Instructions: 1/2 tab qam, 1/2 tab qpm, 1 tab qhs tizanidine 4 mg tablet See Rx Instructions .ROUTE .COMPLEX Qty: 60 0RF Dose Instruction: TAKE 1 TABLET BY MOUTH TWICE DAILY NEEDED FOR MUSCLE SPASTICITY Rx Instructions: TAKE 1 TABLET BY MOUTH TWICE DAILY NEEDED FOR MUSCLE SPASTICITY citalopram 40 mg tablet See Rx Instructions .ROUTE .COMPLEX Qty: 90 0RF Dose Instruction: TAKE 1 TABLET BY MOUTH DAILY Rx Instructions: TAKE 1 TABLET BY MOUTH DAILY medroxyprogesterone 150 mg/mL suspension See Rx Instructions .ROUTE .COMPLEX Qty: 1 0RF Dose Instruction: INJECT 1 ML INTRAMUSCULAR (INTO THE MUSCLE) EVERY 90 DAYS Rx Instructions: INJECT 1 ML INTRAMUSCULAR (INTO THE MUSCLE) EVERY 90 DAYS Discharge Orders: Discharge ED (Routine); Ordered 11/04/22 Ordered By: Momo Perez Referrals: Carola Edwards MD [Primary Care Provider] - Discharge Diet: Advance as tolerated Discharge Activity: Resume usual activity Patient Instructions: Contusion, Opioid Safety, Pain Management Coding Level of Care Code ED Juice Tester for Ryan Cruz
== END 2022-11-04 01:42 | disposition home or self-care (01) ==
PROVIDERS: Emergency Provider Nurse Practitioner; PCP Family Medicine
DX: M79.631 Pain in right forearm (principal); J34.89 Other specified disorders of nose and nasal sinuses; W54.1XXA Struck by dog, initial encounter; Z79.84 Long term (current) use of oral hypoglycemic drugs; F17.210 Nicotine dependence, cigarettes, uncomplicated; E11.9 Type 2 diabetes mellitus without complications
CPT/HCPCS: 70140; 73090; 99284